=== PATIENT | male | born 1945 | race African-American/Black ===

== ENCOUNTER 2018-02-28 19:39 | Emergency (ER) | payer OTHER ==
[2018-02-28 20:10] VITALS: TEMP 96.7; BMI 20.3
--- NOTE | 2018-02-28 20:28 | PDOC ---
History of Present Illness - General Chief Complaint: Injury Stated Complaint: WEAKNESS Time Seen by Provider: 02/28/18 20:16 History Source: Patient Exam Limitations: No Limitations - History of Present Illness Initial Comments: CHIEF COMPLAINT: 72 y/o afebrile male with PMH asthma, COPD, HTN, Hep C sent over from [facility] for low back pain. HISTORY OF PRESENT ILLNESS: The patient had an unwitnessed fall yesterday and has been complaining of left sided low back pain since then. He admits he had surgery on his low back about 4 years ago and he's been relatively pain free but does take Tramadol every day. He denies bowel/bladder incontinence, lower extremity numbness/tingling, saddle anesthesia. he states he didn't fall. Vital signs on arrival are within normal limits. REVIEW OF SYSTEMS: GENERAL/CONSTITUTIONAL: No fever/chills. No weakness. No weight change. HEAD, EYES, EARS, NOSE AND THROAT: No change in vision. No ear pain or discharge. No sore throat. CARDIOVASCULAR: No chest pain or shortness of breath. RESPIRATORY: No cough, wheezing, or hemoptysis. GASTROINTESTINAL: No abd pain, nausea, vomiting, diarrhea, constipation. GENITOURINARY: No dysuria, frequency, or change in urination. MUSCULOSKELETAL: +left low back pain. No joint or muscle swelling or pain. No neck pain. SKIN: No rash or easy bruising. NEUROLOGIC: No headache, vertigo, loss of consciousness, or loss of sensation. PHYSICAL EXAM: GENERAL: The patient is awake, alert, and fully oriented, in no acute distress. He is well appearing. HEAD: Normal with no signs of trauma. ENT: Pupils equal, round and reactive to light, extraocular movements intact, sclera anicteric, conjunctiva clear. Neck supple. LUNGS: Clear to auscultation bilaterally. Normal excursion. No respiratory distress or use of accessory muscles. CV: RRR, S1/S2, no MRG. Cap refill < 2 sec. ABDOMEN: Soft, non-distended, non-tender even to deep palpation, no hepatomegaly or splenomegaly, no masses. BACK: Pain reproduced with palpation of left lumbar paravertebral muscles. No midline lumbar spine TTP or step offs. EXTREMITIES: Normal range of motion, 1+ pitting edema b/l LEs. NEUROLOGICAL: Normal speech, gait not assessed. CN II-XII grossly intact. No saddle anesthesia. SKIN: Warm, dry, normal turgor, no rashes or lesions noted. Past History - Past Medical History Allergies/Adverse Reactions: Allergies Allergy/AdvReac Type Severity Reaction Status Date / Time propofol Allergy Verified 02/28/18 20:10 Home Medications: Ambulatory Orders Fosinopril Sodium 40 mg PO DAILY 02/28/18 Tramadol HCl 50 mg PO Q6H PRN 02/28/18 Asthma: Yes COPD: Yes Thyroid Disease: Yes (HEP C) - Suicide/Smoking/Psychosocial Hx Smoking History: Never smoked *Physical Exam - Vital Signs Last Vital Signs Temp Pulse Resp BP Pulse Ox 96.7 F L 84 18 144/70 99 02/28/18 20:08 02/28/18 20:08 02/28/18 20:08 02/28/18 20:08 02/28/18 20:08 Medical Decision Making - Medical Decision Making A/P: 72 y/o male with left lumbar paravertebral tenderness. Patient denies fall but snf states he fell yesterday. Plan is as follows: 1. Xray lumbar spine 2. UA/culture 3. IM toradol Xray lumbar spine IMPRESSION: No acute bony pathology. UA negative Will discharge back to snf with supportive care instructions. The patient verbalizes understanding of all instructions, has no further questions and is awaiting discharge. *DC/Admit/Observation/Transfer Diagnosis at time of Disposition: Low back pain Qualifiers: Chronicity: acute Back pain laterality: left Sciatica presence: without sciatica Qualified Code(s): M54.5 - Low back pain - Discharge Dispostion Disposition: [facility] Condition at time of disposition: Good - Referrals Referrals: Jose Villarreal [Primary Care Provider] - - Patient Instructions Printed Discharge Instructions: DI for Low Back Pain, How to Prevent Falls Additional Instructions: Discharge Instructions: -the xray of your back was negative for any broken bones -You can take Motrin for pain if needed -Apply ice to the affected area; stretch affected area -Return to the ER with any worsening or concerning symptoms - Post Discharge Activity
[2018-02-28] MEDS ORDERED: KETOROLAC TROMETHAMINE 30 MG/1 ML VIAL IM ONE (20:29)
[2018-02-28] MEDS ORDERED: KETOROLAC TROMETHAMINE 30 MG/1 ML VIAL ONE (20:31)
--- NOTE | 2018-02-28 21:09 | PDOC ---
*Physical Exam - Vital Signs Last Vital Signs Temp Pulse Resp BP Pulse Ox 96.7 F L 84 18 144/70 99 02/28/18 20:08 02/28/18 20:08 02/28/18 20:08 02/28/18 20:08 02/28/18 20:08 ED Treatment Course - Medications Given in the ED: ED Medications Discontinued Medications Generic Name Dose Route Start Last Admin Trade Name Freq PRN Reason Stop Dose Admin Ketorolac Tromethamine 30 mg 02/28/18 20:29 02/28/18 20:34 Toradol Injection - IM 02/28/18 20:30 30 mg ONCE ONE Administration Medical Decision Making - Medical Decision Making 02/28/18 21:09 agree with care from SHASTA Reynolds *DC/Admit/Observation/Transfer Diagnosis at time of Disposition: Low back pain Qualifiers: Chronicity: acute Back pain laterality: left Sciatica presence: without sciatica Qualified Code(s): M54.5 - Low back pain - Discharge Dispostion Condition at time of disposition: Good - Referrals - Patient Instructions Printed Discharge Instructions: DI for Low Back Pain, How to Prevent Falls Additional Instructions: Discharge Instructions: - Post Discharge Activity
[2018-02-28 22:13] LABS: URINE APPEARANCE CLEAR; URINE BILIRUBIN NEGATIVE (<2.0 mg/dL); URINE BLOOD NEGATIVE (NEGATIVE); URINE COLOR LTYELLOW; URINE GLUCOSE (UA) NEGATIVE (NEGATIVE); URINE KETONE NEGATIVE (NEGATIVE); URINE LEUK ESTERASE NEGATIVE (NEGATIVE); URINE NITRITE NEGATIVE (NEGATIVE); URINE PROTEIN NEGATIVE (NEGATIVE); URINE UROBILINOGEN 4.0 E.U/dl mg/dL (0.2-1.0)
[2018-02-28 23:04] VITALS: BP 148/77; PULSE 70
== END 2018-02-28 23:47 ==
LOC: JER 19:39
DX: M54.5 Low back pain (principal); W18.39XA Other fall on same level, initial encounter; Y93.89 Activity, other specified; Y92.128 Other place in nursing home as the place of occurrence of the external cause; Y99.8 Other external cause status; I10 Essential (primary) hypertension; J44.9 Chronic obstructive pulmonary disease, unspecified; J45.909 Unspecified asthma, uncomplicated; B18.2 Chronic viral hepatitis C
CPT/HCPCS: 72100-TC-FY; 81003; 87086; 99283-25

== ENCOUNTER 2018-03-06 09:22 | Inpatient (IN) | payer OTHER ==
--- NOTE | 2018-03-06 09:43 | PDOC ---
History of Present Illness - General History Source: Patient Exam Limitations: No Limitations - History of Present Illness Initial Comments: 03/06/18 11:24 The patient is a 72 year old male resident from [facility], with a significant past medical history of Asthma, COPD, Hepatitis C, chronic lower back pain (on tramadol), ambulates at baseline with walker who presents to the emergency department s/p fall today. As per nursing staff, patient was walking to the bathroom when he fell to the floor. Patient complained of L hip pain and EMS was called. In the ED, patient is a poor historian and is presenting varying histories to nurse and physician. Upon evaluation, patient denies fall however reports worsening L hip pain for years, / in severity, radiating to L groin. Patient denies any head trauma, neck pain, LOC. According to nursing staff, patient has been having recurrent falls and was seen at [facility] ED for the same complaint 3 days ago. Pt is not well known to the [facility] staff as he is new there but they report he has been found on the side of his bed multiple times with unwitnessed falls. Patient denies chest pain, palpitations, diaphoresis, headache or dizziness. Patient denies fever, chills, abdominal pain, nausea, vomit, diarrhea or constipation. Patient denies dysuria, frequency, urgency or hematuria. Patient denies sick contacts or recent travel. Allergies: propofol Past surgical history: Lumbar spine sx Social history:denies etoh, smoking, recreational drug use PCP: None <Mirian Britton - Last Filed: 03/06/18 12:33> <Kevin Acuna - Last Filed: 03/06/18 14:05> - General Chief Complaint: Injury Stated Complaint: FALL Time Seen by Provider: 03/06/18 09:26 Past History <Mirian Britton - Last Filed: 03/06/18 12:33> - Past Medical History Asthma: Yes COPD: Yes Thyroid Disease: Yes (HEP C) - Suicide/Smoking/Psychosocial Hx Smoking History: Never smoked <Kevin Acuna - Last Filed: 03/06/18 14:05> - Past Medical History Allergies/Adverse Reactions: Allergies Allergy/AdvReac Type Severity Reaction Status Date / Time propofol Allergy Verified 02/28/18 20:10 Home Medications: Ambulatory Orders Fosinopril Sodium 40 mg PO DAILY 02/28/18 Tramadol HCl 50 mg PO Q6H PRN 02/28/18 Review of Systems - Review of Systems Able to Perform ROS?: Yes Comments:: 03/06/18 11:24 GENERAL/CONSTITUTIONAL: No fever or chills. No weakness. HEAD, EYES, EARS, NOSE AND THROAT: No change in vision. No ear pain or discharge. No sore throat. GASTROINTESTINAL: No nausea, vomiting, diarrhea or constipation. GENITOURINARY: No dysuria, frequency, or change in urination. CARDIOVASCULAR: No chest pain or shortness of breath. RESPIRATORY: No cough, wheezing, or hemoptysis. MUSCULOSKELETAL: No joint or muscle swelling or pain. + L hip pain. SKIN: No rash NEUROLOGIC: No headache, vertigo, loss of consciousness, or change in strength/ sensation. ENDOCRINE: No increased thirst. No abnormal weight change. HEMATOLOGIC/LYMPHATIC: No anemia, easy bleeding, or history of blood clots. ALLERGIC/IMMUNOLOGIC: No hives or skin allergy. <Mirian Britton - Last Filed: 03/06/18 12:33> *Physical Exam - Vital Signs Last Vital Signs Temp Pulse Resp BP Pulse Ox 98.2 F 85 156/98 99 03/06/18 09:22 03/06/18 09:22 03/06/18 09:22 03/06/18 09:22 - Physical Exam Comments: 03/06/18 11:24 GENERAL: Awake, alert, and fully oriented, in no acute distress HEAD: No signs of trauma EYES: PERRLA, EOMI, sclera anicteric, conjunctiva clear ENT: Auricles normal inspection, hearing grossly normal, nares patent, oropharynx clear without exudates. Moist mucosa NECK: Normal ROM, supple, no lymphadenopathy, JVD, or masses LUNGS: Breath sounds equal, clear to auscultation bilaterally. No wheezes, and no crackles HEART: Regular rate and rhythm, normal S1 and S2, no murmurs, rubs or gallops ABDOMEN: Soft, nontender, normoactive bowel sounds. No guarding, no rebound. No masses EXTREMITIES: Normal range of motion, no edema. No clubbing or cyanosis. No cords , erythema, or tenderness. +Erythema and TTP to the L elbow and proximal forearm. +L anterior superior iliac spine tenderness to palpation. NEUROLOGICAL: Normal speech, cranial nerves intact, negative pronator drift, 4+/ 5 strength in all 4 extremities, normal sensation to light touch in all 4 extremities, normal cerebellar exam, +L hand fine tremor at rest. +shuffling unsteady gait with 2 provider assistance SKIN: Warm, Dry, normal turgor, no rashes or lesions noted. <Mirian Britton - Last Filed: 03/06/18 12:33> Heart Score/ECG Review #1 03/06/18 10:25 Twelve-lead EKG was performed and reviewed by me. Normal sinus rhythm, rate 86. Wavy baseline due to patients baseline tremor, but normal axis.+ Right bundle branch block <Kevin Acuna - Last Filed: 03/06/18 14:05> ED Treatment Course - LABORATORY CBC & Chemistry Diagram: 03/06/18 10:10 03/06/18 10:10 - ADDITIONAL ORDERS Additional order review: Laboratory Results 03/06/18 03/06/18 03/06/18 10:10 10:10 10:10 PT with INR 11.00 INR 0.97 PTT (Actin FS) Sodium Potassium Chloride Carbon Dioxide Anion Gap BUN Creatinine Creat Clearance w eGFR Random Glucose Calcium Magnesium Total Bilirubin AST ALT Alkaline Phosphatase Troponin I < 0.02 Total Protein Albumin TSH 2.37 Urine Color Ltyellow Urine Appearance Clear Urine pH 6.0 Ur Specific [place] 1.011 Urine Protein Negative Urine Glucose (UA) Negative Urine Ketones Negative Urine Blood Negative Urine Nitrite Negative Urine Bilirubin Negative Urine Urobilinogen 4.0 e.u/dl Ur Leukocyte Esterase Negative Blood Type Antibody Screen 03/06/18 03/06/18 03/06/18 10:10 10:10 10:10 PT with INR INR PTT (Actin FS) 33.2 Sodium 140 Potassium 5.5 H Chloride 109 H Carbon Dioxide 27 Anion Gap 4 L BUN 45 H Creatinine 1.4 H Creat Clearance w eGFR 49.54 Random Glucose 149 H Calcium 8.8 Magnesium 2.4 Total Bilirubin 0.6 AST 76 H ALT 77 Alkaline Phosphatase 119 H Troponin I Total Protein 8.1 Albumin 3.8 TSH Urine Color Urine Appearance Urine pH Ur Specific [place] Urine Protein Urine Glucose (UA) Urine Ketones Urine Blood Urine Nitrite Urine Bilirubin Urine Urobilinogen Ur Leukocyte Esterase Blood Type A POSITIVE Antibody Screen Negative 03/06/18 10:10 RBC 4.49 MCV 90.4 MCHC 33.4 RDW 13.3 MPV 9.4 Neutrophils % 58.6 Lymphocytes % 21.3 Monocytes % 14.9 H Eosinophils % 4.5 Basophils % 0.7 - Medications Given in the ED: ED Medications Discontinued Medications Generic Name Dose Route Start Last Admin Trade Name Ofelia PRN Reason Stop Dose Admin Acetaminophen 1,000 mg 03/06/18 09:53 03/06/18 10:25 Ofirmev Injection - IVPB 03/06/18 09:54 1,000 mg ONCE ONE Administration <Mirian Britton - Last Filed: 03/06/18 12:33> - LABORATORY CBC & Chemistry Diagram: 03/06/18 10:10 03/06/18 10:10 <Kevin Acuna - Last Filed: 03/06/18 14:05> Medical Decision Making - Medical Decision Making 03/06/18 12:[address] Nguyen. Discussed patients case. Patient to be admitted under her service. <Mirian Britton - Last Filed: 03/06/18 12:33> - Medical Decision Making 03/06/18 09:54 72-year-old male with a history of hypertension, chronic back pain presents to the emergency Department from [facility] with multiple unwitnessed falls. Vitals unremarkable. Exam with tenderness to palpation along the left hip, L elbow and forearm. Also L sided fine resting tremor. Pt can not recall how he is falling or if he hit his head, states "I think I'm losing my balance." Pt also smells strongly of urine. Plan: -labs -xr -ct -monitor -UA/Ucx -like obs admit 03/06/18 14:03 Imaging unremarkable. Labs unremarkable. Given multiple falls, will admit pt for obs. Case discussed in detail with admitting physician Dr. Nguyen including history , physical exam and ancillary studies. Admitting physician has assumed care for the patient, will follow all pending diagnostics and will complete the evaluation and treatment. <Kevin Acuna - Last Filed: 03/06/18 14:05> *DC/Admit/Observation/Transfer - Attestations Scribe Attestion: 03/06/18 11:25 Documentation prepared by Mirian Britton, acting as medical assembler for Kevin Acuna MD <Mirian Britton - Last Filed: 03/06/18 12:33> - Discharge Dispostion Admit: Yes - Attestations Physician Attestion: 03/06/18 14:05 I, Dr. Kevin Acuna MD, attest that this document has been prepared under my direction and personally reviewed by me in its entirety. I further attest, that it accurately reflects all work, treatment, procedures and medical decision -making performed by me. <Kevin Acuna - Last Filed: 03/06/18 14:05> Diagnosis at time of Disposition: Falls frequently, Syncope and collapse - Discharge Dispostion Condition at time of disposition: Stable
[2018-03-06] MEDS ORDERED: ACETAMINOPHEN 1000 MG/100 ML VIAL (NON FORMULARY) IVPB ONE (09:53)
[2018-03-06 10:16] LABS: BASO % 0.7 % (0-2.0); EOS % 4.5 % (0-4.5); HEMATOCRIT 40.6 % (35.4-49); HEMOGLOBIN 13.6 GM/dL (11.7-16.9); LYMPH % 21.3 % (8-40); MCH 30.2 pg (25.7-33.7); MCHC 33.4 g/dl (32.0-35.9); MEAN CELL VOLUME 90.4 fl (80-96); MEAN PLT VOLUME 9.4 fl (7.5-11.1); MONO % 14.9 % (3.8-10.2); NEUT % 58.6 % (42.8-82.8); PLATELET COUNT 123 K/MM3 (134-434); RBC 4.49 M/mm3 (4.00-5.60); RDW 13.3 % (11.9-15.9); WHITE BLOOD COUNT 5.3 K/mm3 (4.0-10.0)
[2018-03-06 10:17] LABS: URINE APPEARANCE CLEAR; URINE BILIRUBIN NEGATIVE (<2.0 mg/dL); URINE COLOR LTYELLOW; URINE GLUCOSE (UA) NEGATIVE (NEGATIVE); URINE KETONE NEGATIVE (NEGATIVE); URINE LEUK ESTERASE NEGATIVE (NEGATIVE); URINE NITRITE NEGATIVE (NEGATIVE); URINE PROTEIN NEGATIVE (NEGATIVE); URINE UROBILINOGEN 4.0 E.U/dl mg/dL (0.2-1.0)
[2018-03-06] MEDS ORDERED: ACETAMINOPHEN INJECTION 100 ML IVPB ONE (10:19)
[2018-03-06 10:30] LABS: INR 0.97 (0.82-1.09)
[2018-03-06 10:49] LABS: ALBUMIN 3.8 g/dl (3.4-5.0); ALK PHOS 119 U/L (45-117); ANION GAP 4 (8-16); BILIRUBIN,TOTAL 0.6 mg/dL (0.2-1.0); BLOOD UREA NITROGEN 45 mg/dL (7-18); CALCIUM 8.8 mg/dL (8.5-10.1); CHLORIDE 109 mmol/L (98-107); CO2 27 mmol/L (21-32); CREATININE 1.4 mg/dL (0.7-1.3); GLUCOSE,RANDOM 149 mg/dL (74-106); MAGNESIUM 2.4 mg/dL (1.8-2.4); POTASSIUM 5.5 mmol/L (3.5-5.1); SGOT/AST 76 U/L (15-37); SGPT/ALT 77 U/L (12-78); SODIUM 140 mmol/L (136-145); TOT PROT 8.1 g/dl (6.4-8.2)
[2018-03-06] MEDS ORDERED: SODIUM CHLORIDE 0.9% 500 ML INFUS.BAG IV ONE (11:28)
[2018-03-06 17:43] VITALS: BMI 20.3
--- NOTE | 2018-03-06 19:27 | HP ---
Admitting History and Physical - Primary Care Physician PCP: Slava Nguyen - Admission Chief Complaint: fall History of Present Illness: 72 year old male resident from [facility], with a significant past medical history of Asthma, COPD, Hepatitis C, chronic lower back pain (on tramadol), ambulates at baseline with walker who presents to the emergency department s/p fall today. As per nursing staff, patient was walking to the bathroom when he fell to the floor. Patient complained of L hip pain and EMS was called. In the ED, patient is a poor historian and is presenting varying histories to nurse and physician. Upon evaluation, patient denies fall however reports worsening L hip pain for years, / in severity, radiating to L groin. Patient denies any head trauma, neck pain, LOC. According to nursing staff, patient has been having recurrent falls and was seen at [facility] ED for the same complaint 3 days ago. Pt is not well known to the [facility] staff as he is new there but they report he has been found on the side of his bed multiple times with unwitnessed falls. - Past Medical History Cardiovascular: Yes: HTN Pulmonary: Yes: Asthma, COPD - Smoking History Smoking history: Never smoked Have you smoked in the past 12 months: No Home Medications - Allergies Allergies/Adverse Reactions: Allergies Allergy/AdvReac Type Severity Reaction Status Date / Time propofol Allergy Verified 02/28/18 20:10 - Home Medications Home Medications: Ambulatory Orders Ammonium Lactate 1 ml MC BID 03/06/18 Calcium Carbonate [Calcium Antacid] 300 mg PO DAILY 03/06/18 Cyclobenzaprine HCl [Flexeril -] 5 mg PO BID 03/06/18 Ferrous Sulfate 325 mg PO DAILY 03/06/18 Fluticasone Prop 0.05% Nasal [Flonase -] 1 - 2 spray NS BID 03/06/18 Fluticasone/Salmeterol [Advair 250-50 Diskus] 1 each IH BID 03/06/18 Fosinopril Sodium 40 mg PO DAILY 03/06/18 Triamterene/Hydrochlorothiazid [Triamterene-Hctz 37.5-25 mg Cp] 1 each PO DAILY 03/06/18 Physical Examination Vital Signs: Vital Signs Temperature 97.6 F 03/06/18 18:51 Pulse Rate 95 H 03/06/18 18:51 Respiratory Rate 18 03/06/18 18:51 Blood Pressure 145/93 03/06/18 18:51 O2 Sat by Pulse Oximetry (%) 99 03/06/18 17:12 Constitutional: Yes: No Distress HENT: Yes: Atraumatic Neck: Yes: Supple Cardiovascular: Yes: Regular Rate and Rhythm Respiratory: Yes: CTA Bilaterally Gastrointestinal: Yes: Normal Bowel Sounds Extremities: Yes: WNL Edema: No Peripheral Pulses WNL: Yes Neurological: Yes: Alert, Oriented Labs: CBC, BMP 03/06/18 10:10 03/06/18 10:10 Problem List - Problems (1) Falls frequently Assessment/Plan: pt eval pt uses walker at home Code(s): R29.6 - REPEATED FALLS (2) Syncope and collapse Code(s): R55 - SYNCOPE AND COLLAPSE (3) Low back pain Assessment/Plan: prn pain meds Code(s): M54.5 - LOW BACK PAIN Assessment/Plan Laboratory Tests 03/06/18 03/06/18 03/06/18 10:10 10:10 10:10 WBC 5.3 RBC 4.49 Hgb 13.6 Hct 40.6 MCV 90.4 MCH 30.2 MCHC 33.4 RDW 13.3 Plt Count 123 L MPV 9.4 Neutrophils % 58.6 Lymphocytes % 21.3 Monocytes % 14.9 H Eosinophils % 4.5 Basophils % 0.7 PT with INR INR PTT (Actin FS) 33.2 Sodium 140 Potassium 5.5 H Chloride 109 H Carbon Dioxide 27 Anion Gap 4 L BUN 45 H Creatinine 1.4 H Creat Clearance w eGFR 49.54 Random Glucose 149 H Calcium 8.8 Magnesium 2.4 Total Bilirubin 0.6 AST 76 H ALT 77 Alkaline Phosphatase 119 H Troponin I Total Protein 8.1 Albumin 3.8 TSH Urine Color Urine Appearance Urine pH Ur Specific [place] Urine Protein Urine Glucose (UA) Urine Ketones Urine Blood Urine Nitrite Urine Bilirubin Urine Urobilinogen Ur Leukocyte Esterase Blood Type Antibody Screen 03/06/18 03/06/18 03/06/18 10:10 10:10 10:10 WBC RBC Hgb Hct MCV MCH MCHC RDW Plt Count MPV Neutrophils % Lymphocytes % Monocytes % Eosinophils % Basophils % PT with INR 11.00 INR 0.97 PTT (Actin FS) Sodium Potassium Chloride Carbon Dioxide Anion Gap BUN Creatinine Creat Clearance w eGFR Random Glucose Calcium Magnesium Total Bilirubin AST ALT Alkaline Phosphatase Troponin I Total Protein Albumin TSH Urine Color Ltyellow Urine Appearance Clear Urine pH 6.0 Ur Specific [place] 1.011 Urine Protein Negative Urine Glucose (UA) Negative Urine Ketones Negative Urine Blood Negative Urine Nitrite Negative Urine Bilirubin Negative Urine Urobilinogen 4.0 e.u/dl Ur Leukocyte Esterase Negative Blood Type A POSITIVE Antibody Screen Negative 03/06/18 03/06/18 10:10 11:19 WBC RBC Hgb Hct MCV MCH MCHC RDW Plt Count MPV Neutrophils % Lymphocytes % Monocytes % Eosinophils % Basophils % PT with INR INR PTT (Actin FS) Sodium Potassium Chloride Carbon Dioxide Anion Gap BUN Creatinine Creat Clearance w eGFR Random Glucose Calcium Magnesium Total Bilirubin AST ALT Alkaline Phosphatase Troponin I < 0.02 Total Protein Albumin TSH 2.37 Urine Color Urine Appearance Urine pH Ur Specific [place] Urine Protein Urine Glucose (UA) Urine Ketones Urine Blood Urine Nitrite Urine Bilirubin Urine Urobilinogen Ur Leukocyte Esterase Blood Type A POSITIVE Antibody Screen Active Medications Generic Name Dose Route Start Last Admin Trade Name Freq PRN Reason Stop Dose Admin Ferrous Sulfate 325 mg 03/07/18 10:00 Feosol - PO DAILY MARLYS Triamterene/HCTZ 1 cap 03/07/18 10:00 Dyazide 25/37.5mg PO DAILY MARLYS
--- NOTE | 2018-03-06 22:01 | EKG ---
Test Reason : Blood Pressure : / mmHG Vent. Rate : 086 BPM Atrial Rate : 086 BPM P-R Int : 196 ms QRS Dur : 128 ms QT Int : 390 ms P-R-T Axes : 070 066 046 degrees QTc Int : 466 ms NORMAL SINUS RHYTHM RIGHT BUNDLE BRANCH BLOCK BASELINE ARTIFACT ABNORMAL ECG NO PREVIOUS ECGS AVAILABLE Confirmed by OMAR KOEHLER, ALFONSO ([id number]) on 03/06/2018 10:01:05 PM Referred By: Confirmed By:ALFONSO NELSON MD
[2018-03-07 07:46] LABS: ALBUMIN 3.2 g/dl (3.4-5.0); ALK PHOS 98 U/L (45-117); ANION GAP 6 (8-16); BILIRUBIN,TOTAL 0.6 mg/dL (0.2-1.0); BLOOD UREA NITROGEN 30 mg/dL (7-18); CALCIUM 8.8 mg/dL (8.5-10.1); CHLORIDE 109 mmol/L (98-107); CO2 24 mmol/L (21-32); CREATININE 0.8 mg/dL (0.7-1.3); GLUCOSE,RANDOM 145 mg/dL (74-106); POTASSIUM 5.5 mmol/L (3.5-5.1); SGOT/AST 67 U/L (15-37); SGPT/ALT 61 U/L (12-78); SODIUM 139 mmol/L (136-145); TOT PROT 6.9 g/dl (6.4-8.2)
[2018-03-07 07:51] LABS: BASO % 0.7 % (0-2.0); EOS % 5.2 % (0-4.5); HEMATOCRIT 35.6 % (35.4-49); HEMOGLOBIN 11.8 GM/dL (11.7-16.9); LYMPH % 22.8 % (8-40); MCH 30.1 pg (25.7-33.7); MCHC 33.3 g/dl (32.0-35.9); MEAN CELL VOLUME 90.4 fl (80-96); MEAN PLT VOLUME 9.8 fl (7.5-11.1); MONO % 13.8 % (3.8-10.2); NEUT % 57.5 % (42.8-82.8); PLATELET COUNT 121 K/MM3 (134-434); RBC 3.93 M/mm3 (4.00-5.60); RDW 13.8 % (11.9-15.9); WHITE BLOOD COUNT 5.3 K/mm3 (4.0-10.0)
[2018-03-07] MEDS ORDERED: PT OWN MED DRAWER 7, Y5N ONE (09:27)
[2018-03-07] MEDS: FERROUS SO4 325 MG TABLET (FP) PO SCH (09:37)
[2018-03-07] MEDS: TRIAMTERENE AND HCTZ - 37.5 MG/25 MG CAPSULE PO SCH (09:37)
[2018-03-07] MEDS ORDERED: TRIAMTERENE AND HCTZ - 37.5 MG/25 MG CAPSULE PO SCH (10:00)
--- NOTE | 2018-03-07 10:07 | CON.CARD ---
Consult Consult Specialty:: Cardiology Referred by:: Dr. Nguyen Reason for Consultation:: Cardiac evaluation - History of Present Illness Chief Complaint: Status post fall History of Present Illness: Patient is a 72 year old male who resides at [facility] with underlying history of hypertension, bronchial asthma, previous substance abuse, low back pain post surgery and currently ambulates with walker presented to ED after a fall at his residence ([facility]). He denies loss of consciousness. He denies chest pain, shortness of breath or palpitations. He denies paroxysmal nocturnal dyspnea or orthopnea. He denies fever or chills. He denies nausea, vomiting, diarrhea or abdominal pain. He denies headache or lightheadedness. He complains of left sided weakness, but it appears to be presents for some time. Cardiology consultation was called for further evaluation. - History Source History Provided By: Patient, Medical Record Limitations to Obtaining History: No Limitations - Past Medical History Cardio/Vascular: Yes: HTN Pulmonary: Yes: Asthma, COPD - Past Surgical History Additional Surgical History: Back surgery (probable spine surgery) - Alcohol/Substance Use Hx Alcohol Use: Yes History of Substance Use: reports: Cocaine, Heroin, Marijuana - Smoking History Smoking history: Former smoker Have you smoked in the past 12 months: No Home Medications - Allergies Allergies/Adverse Reactions: Allergies Allergy/AdvReac Type Severity Reaction Status Date / Time propofol Allergy Verified 02/28/18 20:10 - Home Medications Home Medications: Ambulatory Orders Ammonium Lactate 1 ml MC BID 03/06/18 Calcium Carbonate [Calcium Antacid] 300 mg PO DAILY 03/06/18 Cyclobenzaprine HCl [Flexeril -] 5 mg PO BID 03/06/18 Ferrous Sulfate 325 mg PO DAILY 03/06/18 Fluticasone Prop 0.05% Nasal [Flonase -] 1 - 2 spray NS BID 03/06/18 Fluticasone/Salmeterol [Advair 250-50 Diskus] 1 each IH BID 03/06/18 Fosinopril Sodium 40 mg PO DAILY 03/06/18 Triamterene/Hydrochlorothiazid [Triamterene-Hctz 37.5-25 mg Cp] 1 each PO DAILY 03/06/18 Family Disease History - Family Disease History Family History: Denies Review of Systems - Review of Systems Constitutional: reports: Weakness. denies: Chills, Fever Cardiovascular: denies: Chest Pain, Palpitations, Shortness of Breath Respiratory: denies: Cough, Hemoptysis, Orthopnea, PND, SOB, SOB on Exertion Gastrointestinal: denies: Abdominal Pain, Constipation, Diarrhea, Melena, Nausea , Rectal Bleeding, Vomiting Musculoskeletal: reports: Muscle Weakness Neurological: reports: Unsteady Gait, Weakness. denies: Confusion, Dizziness, Headache, Numbness, Seizure, Syncope Vital Signs: Vital Signs Temperature 98.1 F 03/07/18 09:00 Pulse Rate 95 H 03/07/18 09:00 Respiratory Rate 03/07/18 09:00 Blood Pressure 166/87 03/07/18 09:00 O2 Sat by Pulse Oximetry (%) 99 03/06/18 17:12 Eyes: Yes: PERRL HENT: Yes: Atraumatic Neck: Yes: Supple Respiratory: Yes: CTA Bilaterally Gastrointestinal: Yes: Normal Bowel Sounds, Soft. No: Tenderness Cardiovascular: Yes: Regular Rate and Rhythm JVD: No Carotid Bruit: No PMI: Non-Displaced Heart Sounds: Yes: S1, S2 Murmur: Yes: Systolic Murmur, Grade 1 Edema: No - Other Data Labs, Other Data: CBC, BMP 03/07/18 06:00 03/07/18 06:00 INR, PTT INR 0.97 (0.82-1.09) 03/06/18 10:10 Troponin, BNP 03/06/18 03/06/18 10:10 20:00 Troponin I < 0.02 0.02 Laboratory Results - last 24 hr 03/06/18 03/06/18 03/06/18 10:10 10:10 10:10 WBC 5.3 RBC 4.49 Hgb 13.6 Hct 40.6 MCV 90.4 MCH 30.2 MCHC 33.4 RDW 13.3 Plt Count 123 L MPV 9.4 Neutrophils % 58.6 Lymphocytes % 21.3 Monocytes % 14.9 H Eosinophils % 4.5 Basophils % 0.7 PT with INR INR PTT (Actin FS) 33.2 Sodium 140 Potassium 5.5 H Chloride 109 H Carbon Dioxide 27 Anion Gap 4 L BUN 45 H Creatinine 1.4 H Creat Clearance w eGFR 49.54 Random Glucose 149 H Calcium 8.8 Magnesium 2.4 Total Bilirubin 0.6 AST 76 H ALT 77 Alkaline Phosphatase 119 H Creatine Kinase Creatine Kinase Index CK-MB (CK-2) Troponin I Total Protein 8.1 Albumin 3.8 TSH Urine Color Urine Appearance Urine pH Ur Specific Dix Urine Protein Urine Glucose (UA) Urine Ketones Urine Blood Urine Nitrite Urine Bilirubin Urine Urobilinogen Ur Leukocyte Esterase Blood Type Antibody Screen 03/06/18 03/06/18 03/06/18 10:10 10:10 10:10 WBC RBC Hgb Hct MCV MCH MCHC RDW Plt Count MPV Neutrophils % Lymphocytes % Monocytes % Eosinophils % Basophils % PT with INR 11.00 INR 0.97 PTT (Actin FS) Sodium Potassium Chloride Carbon Dioxide Anion Gap BUN Creatinine Creat Clearance w eGFR Random Glucose Calcium Magnesium Total Bilirubin AST ALT Alkaline Phosphatase Creatine Kinase Creatine Kinase Index CK-MB (CK-2) Troponin I Total Protein Albumin TSH Urine Color Ltyellow Urine Appearance Clear Urine pH 6.0 Ur Specific Dix 1.011 Urine Protein Negative Urine Glucose (UA) Negative Urine Ketones Negative Urine Blood Negative Urine Nitrite Negative Urine Bilirubin Negative Urine Urobilinogen 4.0 e.u/dl Ur Leukocyte Esterase Negative Blood Type A POSITIVE Antibody Screen Negative 03/06/18 03/06/18 03/06/18 10:10 11:19 20:00 WBC RBC Hgb Hct MCV MCH MCHC RDW Plt Count MPV Neutrophils % Lymphocytes % Monocytes % Eosinophils % Basophils % PT with INR INR PTT (Actin FS) Sodium Potassium Chloride Carbon Dioxide Anion Gap BUN Creatinine Creat Clearance w eGFR Random Glucose Calcium Magnesium Total Bilirubin AST ALT Alkaline Phosphatase Creatine Kinase 462 H Creatine Kinase Index 0.9 CK-MB (CK-2) 4.399 H Troponin I < 0.02 0.02 Total Protein Albumin TSH 2.37 Urine Color Urine Appearance Urine pH Ur Specific Dix Urine Protein Urine Glucose (UA) Urine Ketones Urine Blood Urine Nitrite Urine Bilirubin Urine Urobilinogen Ur Leukocyte Esterase Blood Type A POSITIVE Antibody Screen 03/07/18 03/07/18 06:00 06:00 WBC 5.3 RBC 3.93 L Hgb 11.8 D Hct 35.6 MCV 90.4 MCH 30.1 MCHC 33.3 RDW 13.8 Plt Count 121 L MPV 9.8 Neutrophils % 57.5 Lymphocytes % 22.8 Monocytes % 13.8 H Eosinophils % 5.2 H Basophils % 0.7 PT with INR INR PTT (Actin FS) Sodium 139 Potassium 5.5 H Chloride 109 H Carbon Dioxide 24 Anion Gap 6 L BUN 30 H D Creatinine 0.8 D Creat Clearance w eGFR > 60 Random Glucose 145 H Calcium 8.8 Magnesium Total Bilirubin 0.6 AST 67 H ALT 61 D Alkaline Phosphatase 98 Creatine Kinase Creatine Kinase Index CK-MB (CK-2) Troponin I Total Protein 6.9 Albumin 3.2 L TSH Urine Color Urine Appearance Urine pH Ur Specific Dix Urine Protein Urine Glucose (UA) Urine Ketones Urine Blood Urine Nitrite Urine Bilirubin Urine Urobilinogen Ur Leukocyte Esterase Blood Type Antibody Screen Normal sinus rhythm with RBBB (incomplete) Echo: Pending Imaging - Results Chest X-ray: Report Reviewed (Unremarkable) X-ray: Report Reviewed (Left radial nondisplaced fracture) Cat Scan: Report Reviewed (Cervical disc disease, degenerative joint Head CT showed atrophy) EKG: Report Reviewed Problem List - Problems (1) Fall Code(s): W19.XXXA - UNSPECIFIED FALL, INITIAL ENCOUNTER Qualifiers: Encounter type: initial encounter Qualified Code(s): W19.XXXA - Unspecified fall, initial encounter (2) Nondisplaced fracture of left radius Code(s): S52.92XA - UNSP FRACTURE OF LEFT FOREARM, INIT FOR CLOS FX Qualifiers: Encounter type: initial encounter (3) Bronchial asthma Code(s): J45.909 - UNSPECIFIED ASTHMA, UNCOMPLICATED Qualifiers: Asthma severity: mild Asthma persistence: unspecified Asthma complication type: uncomplicated Qualified Code(s): J45.909 - Unspecified asthma, uncomplicated (4) HTN (hypertension) Code(s): I10 - ESSENTIAL (PRIMARY) HYPERTENSION Qualifiers: Hypertension type: essential hypertension Qualified Code(s): I10 - Essential (primary) hypertension (5) Hyperkalemia Code(s): E87.5 - HYPERKALEMIA Assessment/Plan 1. Status post mechanical fall without evidence of syncope resulting in left radial nondisplaced fracture 2. Hypertension - not at goal 3. History of substance abuse 4. Bronchial asthma 5. Degenerative joint disease/low back pain with disc disease/cervical disc disease 6. Hyperkalemia 7. Elevated AST PLAN: 1. Transthoracic echocardiography to assess LV/RV and valvular function 2. Continue current anti-hypertensive with dyazide 3. Ideally ACEI or ARB can be considered if K level normalizes 4. Add Amlodipine 5 mg once a day and up-titrate 5. Consider orthopedic evaluation for left arm support 6. Monitor electrolytes 7. Follow LFTs. Check fasting lipid panel Further plans are to follow Cem Sanchez MD
[2018-03-07] MEDS: amLODIPine BESYLATE 5 MG TABLET (FP) PO SCH (11:48)
--- NOTE | 2018-03-07 19:05 | PN ---
Progress Note, Physician - Current Medication List Current Medications: Active Medications Amlodipine Besylate (Norvasc -) 5 mg PO DAILY [facility] Last Admin: 03/07/18 11:48 Dose: 5 mg Ferrous Sulfate (Feosol -) 325 mg PO DAILY [facility] Last Admin: 03/07/18 09:37 Dose: 325 mg Triamterene/HCTZ (Dyazide 25/37.5mg) 1 cap PO DAILY [facility] Last Admin: 03/07/18 09:37 Dose: 1 cap - Objective Vital Signs: Vital Signs Temperature 97.8 F 03/07/18 14:27 Pulse Rate 98 H 03/07/18 14:27 Respiratory Rate 16 03/07/18 14:27 Blood Pressure 150/78 03/07/18 14:27 O2 Sat by Pulse Oximetry (%) 95 03/07/18 14:00 Constitutional: Yes: No Distress HENT: Yes: Atraumatic Neck: Yes: Supple Cardiovascular: Yes: Regular Rate and Rhythm Respiratory: Yes: CTA Bilaterally Gastrointestinal: Yes: Normal Bowel Sounds Extremities: Yes: WNL Edema: No Peripheral Pulses WNL: Yes Neurological: Yes: Alert, Oriented Labs: CBC, BMP 03/07/18 06:00 03/07/18 06:00 INR, PTT INR 0.97 (0.82-1.09) 03/06/18 10:10 Problem List - Problems (1) Falls frequently Assessment/Plan: pt eval pt uses walker at home neuro consult ...gait problem Code(s): R29.6 - REPEATED FALLS (2) Syncope and collapse Assessment/Plan: cardiac enzymes negative cardiology consult reviewed Code(s): R55 - SYNCOPE AND COLLAPSE (3) Low back pain Assessment/Plan: prn pain meds Code(s): M54.5 - LOW BACK PAIN (4) HTN (hypertension) Assessment/Plan: on meds Code(s): I10 - ESSENTIAL (PRIMARY) HYPERTENSION Qualifiers: Hypertension type: essential hypertension Qualified Code(s): I10 - Essential (primary) hypertension (5) Hyperkalemia Assessment/Plan: will give K exalate Code(s): E87.5 - HYPERKALEMIA
[2018-03-07] MEDS ORDERED: SODIUM POLYSTYRENE SULFONATE 15 GM/60 ML BOTTLE PO ONE (19:15)
--- NOTE | 2018-03-07 20:43 | CON.NEURO ---
Consult Consult Specialty:: NEUROLOGY-MIGUELINA KOEHLER - History of Present Illness History of Present Illness: 72 year old male resident from [facility] [place], with a significant past medical history of Asthma, COPD, Hepatitis C, chronic lower back pain (on tramadol), ambulates at baseline with walker who presents to the emergency department s/p fall today. As per nursing staff, patient was walking to the bathroom when he fell to the floor. Patient complained of L hip pain and EMS was called. In the ED, patient is a poor historian and is presenting varying histories to nurse and physician. Upon evaluation, patient denies fall however reports worsening L hip pain for years, 10/ in severity, radiating to L groin. Patient denies any head trauma, neck pain, LOC. According to nursing staff, patient has been having recurrent falls and was seen at [facility] ED for the same complaint 3 days ago. Pt is not well known to the [facility] staff as he is new there but they report he has been found on the side of his bed multiple times with unwitnessed falls. -Pt. tells me he began having left leg weakness 3 years ago -this was followed by lumbar spine surgery but leg weakness did not improve, he clive been ambulating with a walker since with a foot drop and entire left leg weakness. He does not know when right leg became weak. Denies loosing consciousness during falls. - Past Medical History Cardio/Vascular: Yes: HTN Pulmonary: Yes: Asthma, COPD - Past Surgical History Additional Surgical History: Back surgery (probable spine surgery) - Alcohol/Substance Use Hx Alcohol Use: Yes History of Substance Use: reports: Cocaine, Heroin, Marijuana - Smoking History Smoking history: Never smoked Have you smoked in the past 12 months: No Home Medications - Allergies Allergies/Adverse Reactions: Allergies Allergy/AdvReac Type Severity Reaction Status Date / Time propofol Allergy Verified 02/28/18 20:10 - Home Medications Home Medications: Ambulatory Orders Ammonium Lactate 1 ml MC BID 03/06/18 Calcium Carbonate [Calcium Antacid] 300 mg PO DAILY 03/06/18 Cyclobenzaprine HCl [Flexeril -] 5 mg PO BID 03/06/18 Ferrous Sulfate 325 mg PO DAILY 03/06/18 Fluticasone Prop 0.05% Nasal [Flonase -] 1 - 2 spray NS BID 03/06/18 Fluticasone/Salmeterol [Advair 250-50 Diskus] 1 each IH BID 03/06/18 Fosinopril Sodium 40 mg PO DAILY 03/06/18 Triamterene/Hydrochlorothiazid [Triamterene-Hctz 37.5-25 mg Cp] 1 each PO DAILY 03/06/18 Physical Exam-Neuro Vital Signs: Vital Signs Temperature 97.8 F 03/07/18 14:27 Pulse Rate 98 H 03/07/18 14:27 Respiratory Rate 16 03/07/18 14:27 Blood Pressure 150/78 03/07/18 14:27 O2 Sat by Pulse Oximetry (%) 98 03/07/18 20:17 Labs: CBC, BMP 03/07/18 06:00 03/07/18 06:00 INR, PTT INR 0.97 (0.82-1.09) 03/06/18 10:10 - Neuro Exam Level Of Consciousness: Yes: Alert, Oriented to Person, Oriented to Place Dominant Hand: Right Mini Mental Exam: Intact HIF DTR's: 0 Left Achilles, 0 Right Achilles (Bilat knee reflexes absent), 1+ Left Bicep, 1+ Right Bicep, 1+ Left Tricep, 1+ Right Tricep, 1+ Left Brachioradialis , 1+ Right Brachioradialis Motor Strength: 2/5: Left Leg, 3/5: Left Leg, 5/5: Left Arm, Right Arm Gait: Other (Unable to stand) Imaging - Results Cat Scan: Report Reviewed (Head-moderate atrophy, chronic sinusitis), Other (DJD , fusion C3/C4 on CT Cspine) Assessment/Plan Pt. with multiple falls, he has had weakness, lower motor neuron x 3 years and hip pain secondary to joint dz. He has been falling because of mechnical reasons. Suggest: MRI l/s spine(unless he has metal inhis back, he says he doesnt) Vitamin B12 level Tramadol for pain Will follow, thank you Patria Ji MD
[2018-03-08 07:20] LABS: ALBUMIN 3.2 g/dl (3.4-5.0); ALK PHOS 105 U/L (45-117); ANION GAP 9 (8-16); BILIRUBIN,TOTAL 0.9 mg/dL (0.2-1.0); BLOOD UREA NITROGEN 22 mg/dL (7-18); CALCIUM 8.8 mg/dL (8.5-10.1); CHLORIDE 107 mmol/L (98-107); CO2 22 mmol/L (21-32); GLUCOSE,RANDOM 166 mg/dL (74-106); POTASSIUM 5.1 mmol/L (3.5-5.1); SGOT/AST 76 U/L (15-37); SGPT/ALT 68 U/L (12-78); SODIUM 138 mmol/L (136-145); TOT PROT 7.4 g/dl (6.4-8.2)
--- NOTE | 2018-03-08 08:35 | PN ---
Progress Note (short form) - Note Progress Note: 72 year old male resident from [facility], with a significant past medical history of Asthma, COPD, Hepatitis C, chronic lower back pain (on tramadol), ambulates at baseline with walker who presents to the emergency department s/p fall today. As per nursing staff, patient was walking to the bathroom when he fell to the floor. Patient complained of L hip pain and EMS was called. In the ED, patient is a poor historian and is presenting varying histories to nurse and physician. Upon evaluation, patient denies fall however reports worsening L hip pain for years, / in severity, radiating to L groin. Patient denies any head trauma, neck pain, LOC. According to nursing staff, patient has been having recurrent falls and was seen at [facility] ED for the same complaint 3 days ago. Pt is not well known to the [facility] staff as he is new there but they report he has been found on the side of his bed multiple times with unwitnessed falls. -Pt. tells me he began having left leg weakness 3 years ago -this was followed by lumbar spine surgery but leg weakness did not improve, he clive been ambulating with a walker since with a foot drop and entire left leg weakness. He does not know when right leg became weak. Denies loosing consciousness during falls. FU HX OF LS spine surgery years ago (?[facility])known HX of left sided foot drop, though over last few days unable ot ambulate, usually able to use walker, +neck and low back pain , ? sesnory changes-poor HX - Past Medical History Cardio/Vascular: Yes: HTN Pulmonary: Yes: Asthma, COPD - Past Surgical History Additional Surgical History: Back surgery (probable spine surgery) - Alcohol/Substance Use Hx Alcohol Use: Yes History of Substance Use: reports: Cocaine, Heroin, Marijuana - Smoking History Smoking history: Never smoked Have you smoked in the past 12 months: No Home Medications - Allergies Allergies/Adverse Reactions: Allergies Allergy/AdvReac Type Severity Reaction Status Date / Time propofol Allergy Verified 02/28/18 20:10 - Home Medications Home Medications: Ambulatory Orders Ammonium Lactate 1 ml MC BID 03/06/18 Calcium Carbonate [Calcium Antacid] 300 mg PO DAILY 03/06/18 Cyclobenzaprine HCl [Flexeril -] 5 mg PO BID 03/06/18 Ferrous Sulfate 325 mg PO DAILY 03/06/18 Fluticasone Prop 0.05% Nasal [Flonase -] 1 - 2 spray NS BID 03/06/18 Fluticasone/Salmeterol [Advair 250-50 Diskus] 1 each IH BID 03/06/18 Fosinopril Sodium 40 mg PO DAILY 03/06/18 Triamterene/Hydrochlorothiazid [Triamterene-Hctz 37.5-25 mg Cp] 1 each PO DAILY 03/06/18 Physical Exam-Neuro: LUE weakness TR 4/5 and interoseei BL IP 3/5 BL, hams 4/5, TA L 3/5 and R 4/5 Vital Signs: Vital Signs Temperature 97.6 F 03/08/18 06:00 Pulse Rate 94 H 03/08/18 06:00 Respiratory Rate 20 03/08/18 06:00 Blood Pressure 140/82 03/08/18 06:00 O2 Sat by Pulse Oximetry (%) 98 03/07/18 20:17 Labs: CBCD WBC 5.3 K/mm3 (4.0-10.0) 03/07/18 06:00 RBC 3.93 M/mm3 (4.00-5.60) L 03/07/18 06:00 Hgb 11.8 GM/dL (11.7-16.9) D 03/07/18 06:00 Hct 35.6 % (35.4-49) 03/07/18 06:00 MCV 90.4 fl (80-96) 03/07/18 06:00 MCHC 33.3 g/dl (32.0-35.9) 03/07/18 06:00 RDW 13.8 % (11.9-15.9) 03/07/18 06:00 Plt Count 121 K/MM3 (134-434) L 03/07/18 06:00 MPV 9.8 fl (7.5-11.1) 03/07/18 06:00 CMP Sodium 139 mmol/L (136-145) 03/07/18 06:00 Potassium 5.5 mmol/L (3.5-5.1) H 03/07/18 06:00 Chloride 109 mmol/L (98-107) H 03/07/18 06:00 Carbon Dioxide 24 mmol/L (21-32) 03/07/18 06:00 Anion Gap 6 (8-16) L 03/07/18 06:00 BUN 30 mg/dL (7-18) H D 03/07/18 06:00 Creatinine 0.8 mg/dL (0.7-1.3) D 03/07/18 06:00 Creat Clearance w eGFR > 60 (>60) 03/07/18 06:00 Calcium 8.8 mg/dL (8.5-10.1) 03/07/18 06:00 Total Bilirubin 0.6 mg/dL (0.2-1.0) 03/07/18 06:00 AST 67 U/L (15-37) H 03/07/18 06:00 ALT 61 U/L (12-78) D 03/07/18 06:00 Alkaline Phosphatase 98 U/L (45-117) 03/07/18 06:00 Total Protein 6.9 g/dl (6.4-8.2) 03/07/18 06:00 Albumin 3.2 g/dl (3.4-5.0) L 03/07/18 06:00 - Neuro Exam Level Of Consciousness: Yes: Alert, Oriented to Person, Oriented to Place Dominant Hand: Right Mini Mental Exam: Intact HIF DTR's: 0 Left Achilles, 0 Right Achilles (Bilat knee reflexes absent), 1+ Left Bicep, 1+ Right Bicep, 1+ Left Tricep, 1+ Right Tricep, 1+ Left Brachioradialis , 1+ Right Brachioradialis Motor Strength: 2/5: Left Leg, 3/5: Left Leg, 5/5: Left Arm, Right Arm Gait: Other (Unable to stand) Imaging - Results Cat Scan: Report Reviewed (Head-moderate atrophy, chronic sinusitis), Other (DJD , fusion C3/C4 on CT Cspine) Assessment/Plan Pt. with multiple falls, prior LS spine surgery and foot drop with progressive gait impairment, now almost paeraplegic L >R r/o worseing LS spine disease though weakness and wasting in the Left UE suggests cervical myelopathy, perhaps at C6-C7 NEEDS MRI C/T and LSPINE EMG LE/REHAB CONSULT NEUROSURGICAL CONSULT Dr FLOR
[2018-03-08 09:56] LABS: CHOLESTEROL 120 mg/dL (50-200); HDL CHOLESTEROL 50 mg/dL (40-60); TRIGLYCERIDES 127 mg/dL (35-160)
[2018-03-08] MEDS: TRIAMTERENE AND HCTZ - 37.5 MG/25 MG CAPSULE PO SCH (10:07)
[2018-03-08] MEDS: FERROUS SO4 325 MG TABLET (FP) PO SCH (10:08)
[2018-03-08] MEDS: amLODIPine BESYLATE 5 MG TABLET (FP) PO SCH (10:08)
--- NOTE | 2018-03-08 11:23 | PN ---
Progress Note, Physician History of Present Illness: Denies near or true syncope, no chest pain or dyspnea. - Current Medication List Current Medications: Active Medications Amlodipine Besylate (Norvasc -) 5 mg PO DAILY [facility] Last Admin: 03/08/18 10:08 Dose: 5 mg Ferrous Sulfate (Feosol -) 325 mg PO DAILY [facility] Last Admin: 03/08/18 10:08 Dose: 325 mg Triamterene/HCTZ (Dyazide 25/37.5mg) 1 cap PO DAILY [facility] Last Admin: 03/08/18 10:07 Dose: 1 cap - Objective Vital Signs: Vital Signs Temperature 98.1 F 03/08/18 10:00 Pulse Rate 100 H 03/08/18 10:00 Respiratory Rate 18 03/08/18 10:00 Blood Pressure 133/72 03/08/18 10:00 O2 Sat by Pulse Oximetry (%) 98 03/07/18 20:17 Constitutional: Yes: No Distress, Calm, Thin Neck: Yes: Supple Cardiovascular: Yes: Regular Rate and Rhythm Respiratory: Yes: Regular, CTA Bilaterally Gastrointestinal: Yes: Normal Bowel Sounds, Soft Edema: No Labs: CBC, BMP 03/07/18 06:00 03/08/18 05:35 INR, PTT INR 0.97 (0.82-1.09) 03/06/18 10:10 - ....Imaging EKG: Report Reviewed (Tele: NSR) Problem List - Problems (1) Falls frequently Code(s): R29.6 - REPEATED FALLS (2) HTN (hypertension) Code(s): I10 - ESSENTIAL (PRIMARY) HYPERTENSION Qualifiers: Hypertension type: essential hypertension Qualified Code(s): I10 - Essential (primary) hypertension (3) Hyperkalemia Code(s): E87.5 - HYPERKALEMIA (4) Nondisplaced fracture of left radius Code(s): S52.92XA - UNSP FRACTURE OF LEFT FOREARM, INIT FOR CLOS FX Qualifiers: Encounter type: initial encounter (5) Low back pain Code(s): M54.5 - LOW BACK PAIN Assessment/Plan 03/07/2018 Echo: Normal biventricular size and fxn, small effusion 1. Status post mechanical fall without evidence of syncope resulting in left radial nondisplaced fracture 2. Hypertension - improved control 3. History of substance abuse 4. Bronchial asthma 5. Degenerative joint disease/low back pain with disc disease/cervical disc disease 6. Hyperkalemia improved PLAN: 1. Continue Dyazide 25/37.5 qd, Norvasc 5 qd, monitor electrolytes 2. Ideally ACEI or ARB can be considered once K level normalizes 3. Consider orthopedic evaluation for left arm support 4. Follow MRI l/s spine, d/c telemetry, PT for gait training
--- NOTE | 2018-03-08 11:52 | CON.ORTH ---
Consult Reason for Consultation:: left hip and left elbow pain - Past Medical History Cardio/Vascular: Yes: HTN Pulmonary: Yes: Asthma, COPD - Past Surgical History Additional Surgical History: Back surgery (probable spine surgery) - Alcohol/Substance Use Hx Alcohol Use: Yes History of Substance Use: reports: Cocaine, Heroin, Marijuana - Smoking History Smoking history: Never smoked Have you smoked in the past 12 months: No Home Medications - Allergies Allergies/Adverse Reactions: Allergies Allergy/AdvReac Type Severity Reaction Status Date / Time propofol Allergy Verified 02/28/18 20:10 - Home Medications Home Medications: Ambulatory Orders Ammonium Lactate 1 ml MC BID 03/06/18 Calcium Carbonate [Calcium Antacid] 300 mg PO DAILY 03/06/18 Cyclobenzaprine HCl [Flexeril -] 5 mg PO BID 03/06/18 Ferrous Sulfate 325 mg PO DAILY 03/06/18 Fluticasone Prop 0.05% Nasal [Flonase -] 1 - 2 spray NS BID 03/06/18 Fluticasone/Salmeterol [Advair 250-50 Diskus] 1 each IH BID 03/06/18 Fosinopril Sodium 40 mg PO DAILY 03/06/18 Triamterene/Hydrochlorothiazid [Triamterene-Hctz 37.5-25 mg Cp] 1 each PO DAILY 03/06/18 Physical Exam for Ortho Vital Signs: Vital Signs Temperature 98.1 F 03/08/18 10:00 Pulse Rate 100 H 03/08/18 10:00 Respiratory Rate 18 03/08/18 10:00 Blood Pressure 133/72 03/08/18 10:00 O2 Sat by Pulse Oximetry (%) 98 03/07/18 20:17 Labs: CBC, BMP 03/07/18 06:00 03/08/18 05:35 INR, PTT INR 0.97 (0.82-1.09) 03/06/18 10:10 - Upper Extremity Elbow: Yes: Left, Ecchymosis, Tenderness, Other (minimal tenderness medially, no tenderness over radial head/neck, full rom, nvi) - Lower Extremity Hip: Yes: Exam WNL, Left, Other (nvi) Imaging - Results X-ray: Report Reviewed, Image Reviewed Assessment/Plan 72 year old male resident from [facility], with a significant past medical history of Asthma, COPD, Hepatitis C, chronic lower back pain (on tramadol), ambulates at baseline with walker who presents to the emergency department s/p fall today. As per nursing staff, patient was walking to the bathroom when he fell to the floor. Patient complained of L hip pain and EMS was called. In the ED, patient is a poor historian and is presenting varying histories to nurse and physician. Upon evaluation, patient denies fall however reports worsening L hip pain for years, 10/10 in severity, radiating to L groin. Patient denies any head trauma, neck pain, LOC. According to nursing staff, patient has been having recurrent falls and was seen at [facility] ED for the same complaint 3 days ago. Pt is not well known to the [place] staff as he is new there but they report he has been found on the side of his bed multiple times with unwitnessed falls. a/p- left hip and elbow contusions NTD PT eval wbat f/u with neurology for LS spine orthopedically stable ok to d/c from ortho pov d/w Dr. Mendosa
--- NOTE | 2018-03-08 18:04 | PN ---
Progress Note, Physician History of Present Illness: feeling good - Current Medication List Current Medications: Active Medications Amlodipine Besylate (Norvasc -) 5 mg PO DAILY [facility] Last Admin: 03/08/18 10:08 Dose: 5 mg Ferrous Sulfate (Feosol -) 325 mg PO DAILY [facility] Last Admin: 03/08/18 10:08 Dose: 325 mg Triamterene/HCTZ (Dyazide 25/37.5mg) 1 cap PO DAILY [facility] Last Admin: 03/08/18 10:07 Dose: 1 cap - Objective Vital Signs: Vital Signs Temperature 98.1 F 03/08/18 10:00 Pulse Rate 100 H 03/08/18 10:00 Respiratory Rate 18 03/08/18 10:00 Blood Pressure 133/72 03/08/18 10:00 O2 Sat by Pulse Oximetry (%) 98 03/08/18 09:00 Constitutional: Yes: No Distress HENT: Yes: Atraumatic Neck: Yes: Supple Cardiovascular: Yes: Regular Rate and Rhythm Respiratory: Yes: CTA Bilaterally Gastrointestinal: Yes: Normal Bowel Sounds Extremities: Yes: WNL Edema: No Peripheral Pulses WNL: Yes Neurological: Yes: Alert, Oriented Labs: CBC, BMP 03/07/18 06:00 03/08/18 05:35 INR, PTT INR 0.97 (0.82-1.09) 03/06/18 10:10 Problem List - Problems (1) Falls frequently Assessment/Plan: pt eval pt uses walker at home neuro consult reviewed checking b12 level Code(s): R29.6 - REPEATED FALLS (2) Syncope and collapse Assessment/Plan: cardiac enzymes negative cardiology consult reviewed Code(s): R55 - SYNCOPE AND COLLAPSE (3) Low back pain Assessment/Plan: prn pain meds Code(s): M54.5 - LOW BACK PAIN (4) HTN (hypertension) Assessment/Plan: on meds Code(s): I10 - ESSENTIAL (PRIMARY) HYPERTENSION Qualifiers: Hypertension type: essential hypertension Qualified Code(s): I10 - Essential (primary) hypertension (5) Hyperkalemia Assessment/Plan: improved Code(s): E87.5 - HYPERKALEMIA
[2018-03-09] MEDS: HEPARIN NA (PORCINE) 5,000 UNITS/ML 1ML VIAL SQ SCH ×3 (00:02→21:31)
--- NOTE | 2018-03-09 08:41 | PN ---
Progress Note (short form) - Note Progress Note: 72 year old male resident from [facility], with a significant past medical history of Asthma, COPD, Hepatitis C, chronic lower back pain (on tramadol), ambulates at baseline with walker who presents to the emergency department s/p fall today. As per nursing staff, patient was walking to the bathroom when he fell to the floor. Patient complained of L hip pain and EMS was called. In the ED, patient is a poor historian and is presenting varying histories to nurse and physician. Upon evaluation, patient denies fall however reports worsening L hip pain for years, 08/16 in severity, radiating to L groin. Patient denies any head trauma, neck pain, LOC. According to nursing staff, patient has been having recurrent falls and was seen at [facility] ED for the same complaint 3 days ago. Pt is not well known to the [facility] staff as he is new there but they report he has been found on the side of his bed multiple times with unwitnessed falls. -Pt. tells me he began having left leg weakness 3 years ago -this was followed by lumbar spine surgery but leg weakness did not improve, he clive been ambulating with a walker since with a foot drop and entire left leg weakness. He does not know when right leg became weak. Denies loosing consciousness during falls. FU HX OF LS spine surgery years ago (?[facility])known HX of left sided foot drop, though over last few days unable ot ambulate, usually able to use walker, +neck and low back pain , ? sensory changes-poor HX - Past Medical History Cardio/Vascular: Yes: HTN Pulmonary: Yes: Asthma, COPD - Past Surgical History Additional Surgical History: Back surgery (probable spine surgery) - Alcohol/Substance Use Hx Alcohol Use: Yes History of Substance Use: reports: Cocaine, Heroin, Marijuana - Smoking History Smoking history: Never smoked Have you smoked in the past 12 months: No Home Medications - Allergies Allergies/Adverse Reactions: Allergies Allergy/AdvReac Type Severity Reaction Status Date / Time propofol Allergy Verified 02/28/18 20:10 - Home Medications Home Medications: Ambulatory Orders Ammonium Lactate 1 ml MC BID 03/06/18 Calcium Carbonate [Calcium Antacid] 300 mg PO DAILY 03/06/18 Cyclobenzaprine HCl [Flexeril -] 5 mg PO BID 03/06/18 Ferrous Sulfate 325 mg PO DAILY 03/06/18 Fluticasone Prop 0.05% Nasal [Flonase -] 1 - 2 spray NS BID 03/06/18 Fluticasone/Salmeterol [Advair 250-50 Diskus] 1 each IH BID 03/06/18 Fosinopril Sodium 40 mg PO DAILY 03/06/18 Triamterene/Hydrochlorothiazid [Triamterene-Hctz 37.5-25 mg Cp] 1 each PO DAILY 03/06/18 Physical Exam-Neuro: LUE weakness TR 4/5 and interoseei BL IP 3/5 BL, hams 4/5, TA L 3/5 and R 4/5 Vital Signs: Labs: CBCD WBC 5.3 K/mm3 (4.0-10.0) 03/07/18 06:00 RBC 3.93 M/mm3 (4.00-5.60) L 03/07/18 06:00 Hgb 11.8 GM/dL (11.7-16.9) D 03/07/18 06:00 Hct 35.6 % (35.4-49) 03/07/18 06:00 MCV 90.4 fl (80-96) 03/07/18 06:00 MCHC 33.3 g/dl (32.0-35.9) 03/07/18 06:00 RDW 13.8 % (11.9-15.9) 03/07/18 06:00 Plt Count 121 K/MM3 (134-434) L 03/07/18 06:00 MPV 9.8 fl (7.5-11.1) 03/07/18 06:00 CMP Sodium 139 mmol/L (136-145) 03/07/18 06:00 Potassium 5.5 mmol/L (3.5-5.1) H 03/07/18 06:00 Chloride 109 mmol/L (98-107) H 03/07/18 06:00 Carbon Dioxide 24 mmol/L (21-32) 03/07/18 06:00 Anion Gap 6 (8-16) L 03/07/18 06:00 BUN 30 mg/dL (7-18) H D 03/07/18 06:00 Creatinine 0.8 mg/dL (0.7-1.3) D 03/07/18 06:00 Creat Clearance w eGFR > 60 (>60) 03/07/18 06:00 Calcium 8.8 mg/dL (8.5-10.1) 03/07/18 06:00 Total Biliru bin 0.6 mg/dL (0.2-1.0) 03/07/18 06:00 AST 67 U/L (15-37) H 03/07/18 06:00 ALT 61 U/L (12-78) D 03/07/18 06:00 Alkaline Phosphatase 98 U/L (45-117) 03/07/18 06:00 Total Protein 6.9 g/dl (6.4-8.2) 03/07/18 06:00 Albumin 3.2 g/dl (3.4-5.0) L 03/07/18 06:00 - Neuro Exam Level Of Consciousness: Yes: Alert, Oriented to Person, Oriented to Place Dominant Hand: Right Mini Mental Exam: Intact HIF DTR's: 0 Left Achilles, 0 Right Achilles (Bilat knee reflexes absent), 1+ Left Bicep, 1+ Right Bicep, 1+ Left Tricep, 1+ Right Tricep, 1+ Left Brachioradialis , 1+ Right Brachioradialis Motor Strength: 2/5: Left Leg, 3/5: Left Leg, 5/5: Left Arm, Right Arm Gait: Other (Unable to stand) Imaging - Results Cat Scan: Report Reviewed (Head-moderate atrophy, chronic sinusitis), Other (DJD , fusion C3/C4 on CT Cspine) Assessment/Plan Pt. with multiple falls, prior LS spine surgery and foot drop with progressive gait impairment, now almost paeraplegic L >R r/o worseing LS spine disease though weakness and wasting in the Left UE suggests cervical myelopathy, perhaps at C6-C7 awaiting MRI C/T and LSPINE EMG LE/REHAB CONSULT NEUROSURGICAL CONSULT Dr FLOR
[2018-03-09] MEDS ORDERED: PT OWN MED DRAWER 7, Y5N ONE (08:42)
[2018-03-09] MEDS: TRIAMTERENE AND HCTZ - 37.5 MG/25 MG CAPSULE PO SCH (09:54)
[2018-03-09] MEDS: FERROUS SO4 325 MG TABLET (FP) PO SCH (09:54)
[2018-03-09] MEDS: amLODIPine BESYLATE 5 MG TABLET (FP) PO SCH (09:54)
--- NOTE | 2018-03-09 14:47 | PN ---
Progress Note, Physician Chief Complaint: Not in distress History of Present Illness: Patient was seen and examined. Awake and alert. Chart was reviewed Denies chest pain, SOB or palpitations - Current Medication List Current Medications: Active Medications Amlodipine Besylate (Norvasc -) 5 mg PO DAILY [facility] Last Admin: 03/09/18 09:54 Dose: 5 mg Ferrous Sulfate (Feosol -) 325 mg PO DAILY [facility] Last Admin: 03/09/18 09:54 Dose: 325 mg Heparin Sodium (Porcine) (Heparin -) 5,000 unit SQ BID [facility] Last Admin: 03/09/18 09:54 Dose: 5,000 unit Triamterene/HCTZ (Dyazide 25/37.5mg) 1 cap PO DAILY [facility] Last Admin: 03/09/18 09:54 Dose: 1 cap - Objective Vital Signs: Vital Signs Temperature 98.2 F 03/09/18 13:44 Pulse Rate 98 H 03/09/18 13:44 Respiratory Rate 18 03/09/18 13:44 Blood Pressure 130/72 03/09/18 13:44 O2 Sat by Pulse Oximetry (%) 99 03/08/18 21:00 HENT: Yes: Atraumatic Neck: Yes: Supple Cardiovascular: Yes: Regular Rate and Rhythm, Murmur (Soft SM), S1, S2 Respiratory: Yes: CTA Bilaterally Gastrointestinal: Yes: Normal Bowel Sounds, Soft. No: Tenderness Edema: No Additional Findings/Remarks: - Review of Systems Constitutional: reports: Weakness. denies: Chills, Fever Cardiovascular: denies: Chest Pain, Palpitations, Shortness of Breath Respiratory: denies: Cough, Hemoptysis, Orthopnea, PND, SOB, SOB on Exertion Gastrointestinal: denies: Abdominal Pain, Constipation, Diarrhea, Melena, Nausea , Rectal Bleeding, Vomiting Musculoskeletal: reports: Muscle Weakness Neurological: reports: Unsteady Gait, Weakness. denies: Confusion, Dizziness, Headache, Numbness, Seizure, Syncope Labs: CBC, BMP 03/07/18 06:00 03/08/18 05:35 INR, PTT INR 0.97 (0.82-1.09) 03/06/18 10:10 Problem List - Problems (1) Fall Code(s): W19.XXXA - UNSPECIFIED FALL, INITIAL ENCOUNTER Qualifiers: Encounter type: initial encounter Qualified Code(s): W19.XXXA - Unspecified fall, initial encounter (2) Nondisplaced fracture of left radius Code(s): S52.92XA - UNSP FRACTURE OF LEFT FOREARM, INIT FOR CLOS FX Qualifiers: Encounter type: initial encounter (3) Bronchial asthma Code(s): J45.909 - UNSPECIFIED ASTHMA, UNCOMPLICATED Qualifiers: Asthma severity: mild Asthma persistence: unspecified Asthma complication type: uncomplicated Qualified Code(s): J45.909 - Unspecified asthma, uncomplicated (4) HTN (hypertension) Code(s): I10 - ESSENTIAL (PRIMARY) HYPERTENSION Qualifiers: Hypertension type: essential hypertension Qualified Code(s): I10 - Essential (primary) hypertension (5) Hyperkalemia Code(s): E87.5 - HYPERKALEMIA Assessment/Plan 1. Status post mechanical fall without evidence of syncope resulting in left radial nondisplaced fracture 2. Hypertension 3. History of substance abuse 4. Bronchial asthma 5. Degenerative joint disease/low back pain with disc disease/cervical disc disease 6. Hyperkalemia 7. Elevated LFT PLAN: 1. Transthoracic echocardiography reviewed 2. Continue current anti-hypertensive with dyazide and Amlodipine 3. Ideally ACEI or ARB can be considered if K level normalizes 4. Orthopedic input noted. Spine MRI pending 5. Monitor electrolytes Further plans are to follow Cem Sanchez MD
--- NOTE | 2018-03-09 15:26 | PN ---
Progress Note, Physician - Current Medication List Current Medications: Active Medications Amlodipine Besylate (Norvasc -) 5 mg PO DAILY [facility] Last Admin: 03/09/18 09:54 Dose: 5 mg Ferrous Sulfate (Feosol -) 325 mg PO DAILY [facility] Last Admin: 03/09/18 09:54 Dose: 325 mg Heparin Sodium (Porcine) (Heparin -) 5,000 unit SQ BID [facility] Last Admin: 03/09/18 09:54 Dose: 5,000 unit Triamterene/HCTZ (Dyazide 25/37.5mg) 1 cap PO DAILY [facility] Last Admin: 03/09/18 09:54 Dose: 1 cap - Objective Vital Signs: Vital Signs Temperature 98.2 F 03/09/18 13:44 Pulse Rate 98 H 03/09/18 13:44 Respiratory Rate 18 03/09/18 13:44 Blood Pressure 130/72 03/09/18 13:44 O2 Sat by Pulse Oximetry (%) 99 03/08/18 21:00 Constitutional: Yes: No Distress HENT: Yes: Atraumatic Neck: Yes: Supple Cardiovascular: Yes: Regular Rate and Rhythm Respiratory: Yes: CTA Bilaterally Gastrointestinal: Yes: Normal Bowel Sounds Extremities: Yes: WNL Peripheral Pulses WNL: Yes Neurological: Yes: Alert, Oriented Labs: CBC, BMP 03/07/18 06:00 03/08/18 05:35 INR, PTT INR 0.97 (0.82-1.09) 03/06/18 10:10 Problem List - Problems (1) Falls frequently Assessment/Plan: going to rehab Code(s): R29.6 - REPEATED FALLS (2) Syncope and collapse Assessment/Plan: cardiac enzymes negative cardiology consult reviewed Code(s): R55 - SYNCOPE AND COLLAPSE (3) Low back pain Assessment/Plan: prn pain meds Code(s): M54.5 - LOW BACK PAIN (4) HTN (hypertension) Assessment/Plan: on meds Code(s): I10 - ESSENTIAL (PRIMARY) HYPERTENSION Qualifiers: Hypertension type: essential hypertension Qualified Code(s): I10 - Essential (primary) hypertension (5) Hyperkalemia Assessment/Plan: improved Code(s): E87.5 - HYPERKALEMIA
--- NOTE | 2018-03-09 17:44 | DS ---
Physical Examination Vital Signs: Vital Signs Temperature 98.2 F 03/09/18 13:44 Pulse Rate 98 H 03/09/18 13:44 Respiratory Rate 18 03/09/18 13:44 Blood Pressure 130/72 03/09/18 13:44 O2 Sat by Pulse Oximetry (%) 99 03/08/18 21:00 Labs: CBC, BMP 03/07/18 06:00 03/08/18 05:35 Discharge Summary Reason For Visit: FALL,GAIT PROBLEM Current Active Problems Bronchial asthma (Acute) Fall (Acute) Falls frequently (Acute) HTN (hypertension) (Acute) Hyperkalemia (Acute) Nondisplaced fracture of left radius (Acute) Syncope and collapse (Acute) Condition: Stable - Instructions - Home Medications Comprehensive Discharge Medication List: Ambulatory Orders Ammonium Lactate 1 ml MC BID 03/06/18 Calcium Carbonate [Calcium Antacid] 300 mg PO DAILY 03/06/18 Ferrous Sulfate 325 mg PO DAILY 03/06/18 Fluticasone Prop 0.05% Nasal [Flonase -] 1 - 2 spray NS BID 03/06/18 Fluticasone/Salmeterol [Advair 250-50 Diskus] 1 each IH BID 03/06/18 Fosinopril Sodium 40 mg PO DAILY 03/06/18 Triamterene/Hydrochlorothiazid [Triamterene-Hctz 37.5-25 mg Cp] 1 each PO DAILY 03/06/18 Amlodipine Besylate [Norvasc -] 5 mg PO DAILY tablet 03/09/18
--- NOTE | 2018-03-09 20:25 | CONS ---
DATE OF CONSULTATION: 03/09/2018 REFERRING PHYSICIAN: Russ Johnson DO DATE OF ADMISSION: 03/07/2018 HISTORY OF PRESENT ILLNESS: The patient is a 72-year-old man with past medical history of lumbar surgery and chronic left foot drop, who was referred for electrodiagnostic evaluation of the lower extremities. Patient has weakness throughout his left lower extremity and seems to be a poor historian. He developed pain in his left hip, left elbow, and has been seen by Orthopedics, without diagnosed him with contusions. The patient was also seen by Neurology and underwent multiple MRIs including cervical, thoracic, and lumbar spine, which were reviewed. Please refer to the reports for details. There was no mention of any thoracic or lumbar stenosis but multiple bulging disks. In the cervical spine, he has marked degenerative narrowing, C4-5 disk space, with disk bulging, posterior spur formation impinging the anterior surface of the cervical cord. The patient again was referred for diagnostic evaluation. He does not complain of a lot of pain at this point other than the left hip and elbow, but he seems to be, again, a poor historian. REVIEW OF PAST MEDICAL AND SURGICAL HISTORY: Asthma, COPD, chronic back pain, chronic left foot drop, lumbar surgery, hypertension. SOCIAL HISTORY: Apparently was living at [facility]. He states with a left ankle-foot arthrosis, he can ambulate with a cane, uncertain how accurate this is, as he was evaluated here at [facility] and required moderate assistance of 2 for sit to stand transfer, only able to ambulate a few feet with max assist of 2, with bilateral lower extremity weakness noted. CURRENT BLOOD WORK: He has a normal CBC. WBC is 5.3, hemoglobin 11.8, platelet count slightly low at 121 as of March 07. His chemistry showed elevated BUN 22, creatinine 1.0. On admission, he had slight elevation of potassium at 5.5. Troponins were normal. His albumin was low at 3.2. Vitamin B12 was normal at 558. He also had a TSH which was normal at 2.37. REVIEW OF SYSTEMS: He denies any dizziness, lightheadedness, any blurry vision or double vision, any nausea vomiting. No difficulty swallowing or chewing. He does get dyspneic with exertion at times. No abdominal discomfort. No bowel or bladder complaints that are new but he does lose his urine at times. He has some numbness in the dorsum of the left foot but denies any other numbness in his upper or lower extremities. He does note weakness throughout his left leg but denies any right lower extremity weakness. He has lost a lot of weight. EXAMINATION: General: On examination, the patient is a thin elderly man, seen lying on a stretcher. He is in no acute distress. For the most part, he is awake and cooperative with examination. His cranial nerves 2-12 appear grossly intact. He has no obvious facial weakness. Neck: Supple. Extremities: Without any pitting edema or calf tenderness. Neuromuscular: He is awake, alert, cooperative. He has some atrophy of the intrinsics of the left hand with diminished sensation to the 5th digit to pinprick. Mildly diminished recruitment internship. Good shoulder girdle strength. Good elbow flexion, elbow extension. In the lower extremities, he has weakness throughout his left lower extremity, especially in his dorsiflexors, which are 1 to 2; hip abductors 1 to 2; knee flexors 1 to 2; knee extensors are 3+; plantar flexors 3+. Right lower extremity has better strength, at least 3+ proximal and 4+ distally; diminished sensation, mainly in the dorsum of the left hand and left 5th digit. For results of EMG and nerve conduction study, please refer to report for details. OVERALL IMPRESSION: 1. 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 2. 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 3. 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 4. There are fasciculations but no diffuse muscle membrane instability in the right upper extremity or definite motor neuron disease. 5. Chronic left foot drop, probably back etiology. 6. Diffuse weakness. Rule out cervical stenosis. 7. Chronic obstructive pulmonary disease. 8. Hypertension. 9. Thrombocytopenia. 10. Hypoalbuminemia. PLAN, SUGGESTION: 1. Physical therapy to continue. 2. May require new AFO. Patient's left ankle-foot arthrosis appears too big, at least in the proximal calf. 3. Out of bed to chair. 4. Neurologic followup. 5. Unable to evaluate lumbar spine MRI on imaging. Will attempt to review. 6. DVT prophylaxis until more mobile. Patient is on subcutaneous heparin. Would continue. 7. Skin precautions. Monitor for heel breakdown or erythema. 8. Bowel regimen, monitor for constipation. 9. Disposition: Short-term rehab in a long term facility. Thank you for this referral. SHERRY LOVELL M.D. CITLALLI/[id number]
[2018-03-10] MEDS ORDERED: PT OWN MED DRAWER 7, Y5N ONE (09:04)
[2018-03-10] MEDS: FERROUS SO4 325 MG TABLET (FP) PO SCH (09:37)
[2018-03-10] MEDS: amLODIPine BESYLATE 5 MG TABLET (FP) PO SCH (09:37)
[2018-03-10] MEDS: TRIAMTERENE AND HCTZ - 37.5 MG/25 MG CAPSULE PO SCH (09:37)
[2018-03-10] MEDS: HEPARIN NA (PORCINE) 5,000 UNITS/ML 1ML VIAL SQ SCH (09:38)
[2018-03-10 10:09] VITALS: BP 138/81; PULSE 92; TEMP 97.3
--- NOTE | 2018-03-10 12:55 | DS ---
Physical Examination Vital Signs: Vital Signs Temperature 97.3 F L 03/10/18 10:00 Pulse Rate 92 H 03/10/18 10:00 Respiratory Rate 18 03/10/18 10:00 Blood Pressure 138/81 03/10/18 10:00 O2 Sat by Pulse Oximetry (%) 99 03/10/18 09:00 Constitutional: Yes: No Distress HENT: Yes: Atraumatic Neck: Yes: Supple Cardiovascular: Yes: Regular Rate and Rhythm Respiratory: Yes: CTA Bilaterally Gastrointestinal: Yes: Normal Bowel Sounds Extremities: Yes: WNL Edema: No Peripheral Pulses WNL: Yes Neurological: Yes: Alert, Oriented Labs: CBC, BMP 03/07/18 06:00 03/08/18 05:35 Discharge Summary Reason For Visit: FALL,GAIT PROBLEM Current Active Problems Bronchial asthma (Acute) Fall (Acute) Falls frequently (Acute) HTN (hypertension) (Acute) Hyperkalemia (Acute) Nondisplaced fracture of left radius (Acute) Syncope and collapse (Acute) Condition: Stable - Instructions - Home Medications Comprehensive Discharge Medication List: Ambulatory Orders Ammonium Lactate 1 ml MC BID 03/06/18 Calcium Carbonate [Calcium Antacid] 300 mg PO DAILY 03/06/18 Ferrous Sulfate 325 mg PO DAILY 03/06/18 Fluticasone Prop 0.05% Nasal [Flonase -] 1 - 2 spray NS BID 03/06/18 Fluticasone/Salmeterol [Advair 250-50 Diskus] 1 each IH BID 03/06/18 Fosinopril Sodium 40 mg PO DAILY 03/06/18 Triamterene/Hydrochlorothiazid [Triamterene-Hctz 37.5-25 mg Cp] 1 each PO DAILY 03/06/18 Amlodipine Besylate [Norvasc -] 5 mg PO DAILY tablet 03/09/18 nc snf
== END 2018-03-10 13:58 | DRG 563 ==
LOC: JER 09:22 → JERBED 14:05 → J4S 17:41 → OBSVTOIN 03-07 19:05
PROVIDERS: ADMIT Internal Medicine; ATTEND Internal Medicine
DX: S52.135A Nondisplaced fracture of neck of left radius, initial encounter for closed fracture (principal); S50.02XA Contusion of left elbow, initial encounter; S70.02XA Contusion of left hip, initial encounter; W17.89XA Other fall from one level to another, initial encounter; Y93.01 Activity, walking, marching and hiking; Y92.121 Bathroom in nursing home as the place of occurrence of the external cause; Y99.8 Other external cause status; R26.9 Unspecified abnormalities of gait and mobility; M54.5 Low back pain; M21.371 Foot drop, right foot; F12.10 Cannabis abuse, uncomplicated; F11.10 Opioid abuse, uncomplicated; F14.10 Cocaine abuse, uncomplicated; F10.10 Alcohol abuse, uncomplicated; J44.9 Chronic obstructive pulmonary disease, unspecified; B19.20 Unspecified viral hepatitis C without hepatic coma; I45.10 Unspecified right bundle-branch block; Z91.81 History of falling; Z87.891 Personal history of nicotine dependence; E87.5 Hyperkalemia
CPT/HCPCS: 36415; 70450-TC; 71045-TC-FY; 72125-TC; 72141-TC; 72146-TC; 72148-TC; 72170-TC-FY; 73070-TC-LT-FY; 73090-TC-LT-FY; 80053; 80061; 81003; 82550; 82553; 82607; 83721; 83735; 84443; 84484; 85025; 85610; 85730; 86850; 86900; 86901; 87086; 93005; 93010; 93306-TC; 95860-TC; 97116-GP; 97162-GP; 99284-25; G0378; J0131; J1644

== ENCOUNTER 2019-08-15 10:51 | Day surgery (SDC) | payer OTHER ==
[2019-08-14 13:47] VITALS: BMI 22.5
[2019-08-15] MEDS ORDERED: LIDOCAINE HCL/PF 2% SDV 5ML VIAL ONE (11:54)
[2019-08-15 12:22] VITALS: TEMP 98.3
[2019-08-15 12:44] VITALS: BP 128/64; PULSE 69
--- NOTE | 2019-08-17 16:11 | PATH ---
Surgical Pathology Report Patient Name: MOLLY AZAR [facility] Rec. #: [id number] /Age/Gender: 1945 (Age: 73) / M Account: [id number] Location: [facility] Taken: 08/15/2019 Received: 08/15/2019 Reported: 08/17/2019 Physicians: Noemi Reyes M.D. Specimen(s) Received A: SECOND PORTION DUODENUM B: BIOPSY GASTRIC ANTRUM C: GE JUNCTION Clinical History Dyspepsia. Postoperative diagnosis: Gastritis Final Diagnosis A. SECOND PORTION DUODENUM, BIOPSY: DUODENAL MUCOSA WITH NO PATHOLOGIC FINDINGS. B. GASTRIC ANTRUM, BIOPSY: MILD CHRONIC GASTRITIS WITH FEATURES OF REACTIVE GASTROPATHY. IMMUNOSTAIN IS NEGATIVE FOR H. PYLORI ORGANISMS. C. GE JUNCTION, BIOPSY: ESOPHAGOGASTRIC JUNCTIONAL (SQUAMOCOLUMNAR) MUCOSA SHOWING FOCAL INTESTINAL METAPLASIA, COMPATIBLE WITH GRAHAM'S ESOPHAGUS IN CONJUNCTION WITH APPROPRIATE ENDOSCOPIC FINDINGS. NEGATIVE FOR INTESTINAL METAPLASIA. Electronically Signed Daisy Romero M.D. Gross Description A. Received in formalin, labeled "second portion duodenum" is a borges, irregular portion of soft tissue measuring 0.3 cm. in greatest dimension. The specimen is submitted in toto in one cassette. B. Received in formalin, labeled "gastric antrum" is a borges, irregular portion of soft tissue measuring 0.2 cm. in greatest dimension. The specimen is submitted in toto in one cassette. C. Received in formalin, labeled "GE junction" is a borges, irregular portion of soft tissue measuring 0.3 cm. in greatest dimension. The specimen is submitted in toto in one cassette.
== END 2019-08-15 12:55 | disposition home or self-care (01) ==
LOC: FASU-ENDO 10:51
PROVIDERS: ATTEND Internal Medicine Gastroenterology
PROC: 0DB68ZX Excision of Stomach, Via Natural or Artificial Opening Endoscopic, Diagnostic (ICD-10-PCS; 2019-08-15)
PROC: 0DB98ZX Excision of Duodenum, Via Natural or Artificial Opening Endoscopic, Diagnostic (ICD-10-PCS; principal; 2019-08-15 11:55)
DX: K22.70 Barrett's esophagus without dysplasia (principal); K29.50 Unspecified chronic gastritis without bleeding; K31.9 Disease of stomach and duodenum, unspecified; R10.13 Epigastric pain; R11.0 Nausea
CPT/HCPCS: 82962; 88305-TC; 88342-TC

== ENCOUNTER 2019-09-12 10:09 | Day surgery (SDC) | payer OTHER ==
[2019-09-10 13:27] VITALS: BMI 23.3
[2019-09-12] MEDS ORDERED: LIDOCAINE HCL/PF 2% SDV 5ML VIAL ONE (10:48)
[2019-09-12] MEDS ORDERED: PROPOFOL 20 ML ONE ×2 (10:48)
[2019-09-12 11:02] VITALS: TEMP 97.4
[2019-09-12 12:45] VITALS: BP 119/79; PULSE 89
== END 2019-09-12 12:40 ==
LOC: FASU-ENDO 10:09
PROVIDERS: ATTEND Internal Medicine Gastroenterology
PROC: 0DJD8ZZ Inspection of Lower Intestinal Tract, Via Natural or Artificial Opening Endoscopic (ICD-10-PCS; principal; 2019-09-12 11:42)
DX: Z12.11 Encounter for screening for malignant neoplasm of colon (principal); K64.8 Other hemorrhoids
CPT/HCPCS: 82962

== ENCOUNTER 2020-12-10 12:00 | Emergency (ER) | payer OTHER ==
[2020-12-10 12:20] VITALS: BMI 24.5
[2020-12-10 13:59] LABS: INR 1.08 (0.83-1.09); PROTHROMBIN TIME (PATIENT) 13.3 SEC (9.7-13.0)
[2020-12-10 14:01] LABS: ACTIVATED PTT 33.3 SECONDS (25.2-36.5)
[2020-12-10 14:10] LABS: POTASSIUM 4.4 mmol/L (3.5-5.1)
[2020-12-10 14:13] LABS: CALCIUM 8.7 mg/dL (8.5-10.1)
[2020-12-10 14:14] LABS: ALBUMIN 2.7 g/dl (3.4-5.0)
[2020-12-10 14:17] LABS: CREATININE 1.4 mg/dL (0.55-1.3)
[2020-12-10 14:19] LABS: TOT PROT 7.7 g/dl (6.4-8.2)
[2020-12-10 14:22] LABS: BASO % 0.7 % (0-2.0); HEMATOCRIT 26.1 % (35.4-49); LYMPH % 24.1 % (8-40); MCHC 30.7 g/dl (32.0-35.9); MEAN CELL VOLUME 61.4 fl (80-96); MEAN PLT VOLUME 9.1 fl (7.5-11.1); MONO % 11.9 % (3.8-10.2); NEUT % 60.3 % (42.8-82.8); PLATELET COUNT 211 K/MM3 (134-434); RBC 4.25 M/mm3 (4.00-5.60); RDW 24.2 % (11.9-15.9); WHITE BLOOD COUNT 6.3 K/mm3 (4.0-10.0)
[2020-12-10 14:29] LABS: MCH 18.8 pg (25.7-33.7)
[2020-12-10 16:42] LABS: ANISOCYTOSIS 2+; MACROCYTOSIS 0; PLATELET ESTIMATE NORMAL; TARGET CELLS 1+
[2020-12-10 17:30] VITALS: BP 123/54; PULSE 78; TEMP 97.8
== END 2020-12-10 20:07 | disposition home or self-care (01) ==
LOC: JER 12:00
DX: D64.9 Anemia, unspecified (principal)
CPT/HCPCS: 36415; 80053; 82272; 85025; 85610; 85730; 86850; 86900; 86901; 99283-25

== ENCOUNTER 2021-02-18 17:07 | Emergency (ER) | payer OTHER ==
[2021-02-18 17:30] VITALS: BMI 25.8
[2021-02-18 17:44] LABS: BASO % 0.8 % (0-2.0); EOS % 5.9 % (0-4.5); HEMATOCRIT 23.8 % (35.4-49); HEMOGLOBIN 7.1 GM/dL (11.7-16.9); LYMPH % 27.2 % (8-40); MCH 16.9 pg (25.7-33.7); MCHC 29.7 g/dl (32.0-35.9); MEAN PLT VOLUME 8.9 fl (7.5-11.1); MONO % 12.7 % (3.8-10.2); NEUT % 53.4 % (42.8-82.8); PLATELET COUNT 119 K/MM3 (134-434); RBC 4.18 M/mm3 (4.00-5.60); RDW 22.2 % (11.9-15.9); WHITE BLOOD COUNT 7.3 K/mm3 (4.0-10.0)
[2021-02-18 18:33] LABS: ANISOCYTOSIS 3+; MACROCYTOSIS 0; OVALOCYTE 1+; PLATELET ESTIMATE DECREASED; TARGET CELLS 1+
[2021-02-18 23:20] VITALS: BP 133/67; PULSE 73; TEMP 97.7
== END 2021-02-19 00:05 ==
LOC: JER 17:07
DX: R71.8 Other abnormality of red blood cells (principal)
CPT/HCPCS: 36415; 36430; 82272; 85025; 86850; 86900; 86901; 86922; 99283-25; P9058

== ENCOUNTER 2021-02-25 10:17 | Day surgery (SDC) | payer OTHER ==
[2021-01-19 15:19] VITALS: BMI 23.0
[2021-02-25 10:56] VITALS: TEMP 97.8
[2021-02-25 12:23] VITALS: BP 130/61; PULSE 74
== END 2021-02-25 13:40 | disposition home or self-care (01) ==
LOC: FASU-ENDO 10:17
PROVIDERS: ATTEND Internal Medicine Gastroenterology
PROC: 0DJD8ZZ Inspection of Lower Intestinal Tract, Via Natural or Artificial Opening Endoscopic (ICD-10-PCS; principal; 2021-02-25 11:29)
DX: D12.2 Benign neoplasm of ascending colon (principal); K64.0 First degree hemorrhoids; K64.8 Other hemorrhoids; D64.9 Anemia, unspecified; Z88.8 Allergy status to other drugs, medicaments and biological substances
CPT/HCPCS: 82962; 88305-TC

== ENCOUNTER 2022-11-04 09:12 | Inpatient (IN) | payer OTHER ==
[2022-11-04] MEDS ORDERED: ATROPINE SULFATE 1 MG/10 ML DISP.SYRIN ONE (09:26)
[2022-11-04 09:33] VITALS: BMI 25.5
[2022-11-04] MEDS ORDERED: ALBUTEROL SO4 2.5/IPRATROPIUM 0.5 INH SOL 3 ML VIAL.NEB. NEB ONE ×3 (09:36→10:58)
[2022-11-04] MEDS ORDERED: PIPERACILLIN/TAZOB 3.375 GM 3.375 GM in DEXTROSE 5%-WATER - 50 ML IVPB ONE (10:07)
[2022-11-04] MEDS ORDERED: DEXTROSE 50%-WATER - 25 GM/50 ML VIAL IVPUSH ONE (10:08)
[2022-11-04 10:12] LABS: VENOUS O2 SATURATION 68.8 % (70-80); VENOUS PCO2 60.3 mmHg (38-52); VENOUS PH 7.242 (7.310-7.410)
[2022-11-04] MEDS ORDERED: DEXTROSE 50%-WATER 25 GM/50 ML DISP.SYRIN ONE (10:15)
[2022-11-04] MEDS ORDERED: PIPERACILLIN/TAZOB 3.375 GM 3.375 GM/50 ML BAG IVPB ONE (10:15)
[2022-11-04 10:20] LABS: BASO % 0.2 % (0-2.0); EOS % 2.5 % (0-4.5); HEMATOCRIT 39.4 % (35.4-49); HEMOGLOBIN 12.1 GM/dL (11.7-16.9); LYMPH % 29.3 % (8-40); MCH 25.2 pg (25.7-33.7); MCHC 30.6 g/dl (32.0-35.9); MEAN CELL VOLUME 82.5 fl (80-96); MEAN PLT VOLUME 9.1 fl (7.5-11.1); MONO % 6.8 % (3.8-10.2); NEUT % 61.2 % (42.8-82.8); PLATELET COUNT 156 10^3/uL (134-434); RBC 4.78 M/mm3 (4.00-5.60); RDW 19.5 % (11.9-15.9); WHITE BLOOD COUNT 8.3 K/mm3 (4.0-10.0)
[2022-11-04 10:24] LABS: INR 1.06 (0.83-1.09); PROTHROMBIN TIME (PATIENT) 12.2 SEC (9.7-13.0)
[2022-11-04 10:27] LABS: ACTIVATED PTT 42.2 SECONDS (25.2-36.5)
[2022-11-04 10:34] LABS: EPI CELLS 29 /uL (0-25.1); HYALINE CASTS 3 /uL (0-3.1); URINE APPEARANCE TURBID; URINE BACTERIA >9,000 /uL (0-1359); URINE BILIRUBIN NEGATIVE (NEGATIVE); URINE COLOR YELLOW; URINE GLUCOSE (UA) NEGATIVE (NEGATIVE); URINE KETONE NEGATIVE (NEGATIVE); URINE LEUK ESTERASE 3+ (NEGATIVE); URINE NITRITE POSITIVE (NEGATIVE); URINE PROTEIN 2+ (NEGATIVE); URINE UROBILINOGEN 0.2 mg/dL (0.2-1.0); URINE WBC 28075 /uL (0-25.8)
[2022-11-04 10:41] LABS: URINE RBC 332.6 /uL (0-23.9); YEAST NEGATIVE (NEGATIVE)
[2022-11-04 10:43] LABS: CHLORIDE 111 mmol/L (98-107); SODIUM 143 mmol/L (136-145)
[2022-11-04 10:44] LABS: CALCIUM 8.7 mg/dL (8.5-10.1)
[2022-11-04 10:45] LABS: ALBUMIN 3.2 g/dl (3.4-5.0); ANION GAP 8 MMOL/L (8-16); BLOOD UREA NITROGEN 50.1 mg/dL (7-18); CO2 24 mmol/L (21-32)
[2022-11-04 10:49] LABS: CREATININE 1.9 mg/dL (0.55-1.3); SGOT/AST 68 U/L (15-37); SGPT/ALT 51 U/L (13-61)
[2022-11-04 10:50] LABS: BILIRUBIN,TOTAL 0.5 mg/dL (0.2-1); TOT PROT 7.9 g/dl (6.4-8.2)
[2022-11-04 10:51] LABS: ALK PHOS 116 U/L (45-117)
[2022-11-04] MEDS ORDERED: VANCOMYCIN 1 GM in D5W (PRE-DOCKED) 1,000 MG/250 ML IVPB ONE (10:57)
[2022-11-04 10:59] LABS: ARTERIAL BLD GAS O2 SATURATION 92.6 % (95-98); ARTERIAL BLOOD GAS BASE EXCESS -5.4 mmol/L (-2-2); ARTERIAL BLOOD GAS PO2 69.6 mmHg (80-100); ARTERIAL BLOOD GAS pH 7.317 (7.350-7.450)
[2022-11-04 11:01] LABS: GLUCOSE,RANDOM 31 mg/dL (74-106)
[2022-11-04 11:02] LABS: ALLENS TEST POSITIVE
[2022-11-04 11:03] LABS: VENT MODE PSV; VENT RATE 8
[2022-11-04] MEDS ORDERED: REMDESIVIR 200 MG in SODIUM CHLORIDE 250 ML IVPB ONE (11:27)
[2022-11-04] MEDS ORDERED: VANCOMYCIN/WATER FOR INJ (PEG) 1,000 MG/200 ML BAG IVPB ONE (11:32)
[2022-11-04] MEDS ORDERED: DEXAMETHASONE SOD PHOSPHATE 20 MG/5 ML VIAL IVPB ONE (11:47)
[2022-11-04] MEDS ORDERED: DEXAMETHASONE SOD PHOSPHATE 10 MG/1 ML VIAL ONE (12:00)
[2022-11-04] MEDS ORDERED: DEXAMETHASONE SOD PHOSPHATE 10 MG/1 ML VIAL IVPB ONE (12:00)
[2022-11-04] MEDS ORDERED: ACETAMINOPHEN 1000 MG/100 ML BAG IVPB ONE (12:30)
[2022-11-04] MEDS ORDERED: ACETAMINOPHEN INJECTION 100 ML IVPB ONE (12:33)
[2022-11-04 16:55] LABS: LACTIC ACID 2.3 mmol/L (0.4-2.0)
[2022-11-04] MEDS: CEFTRIAXONE 1 GM in DEXTROSE 5%-WATER - 50 ML IVPB SCH (18:43)
[2022-11-04] MEDS ORDERED: CEFTRIAXONE 1 GM/50 ML BAG ONE (18:44)
[2022-11-04] MEDS: DEXTROSE 5%-0.45% SALINE 1,000 ML IV SCH (19:56)
[2022-11-05] MEDS: DEXAMETHASONE SOD PHOSPHATE 10 MG/1 ML VIAL IVPB SCH (10:22)
[2022-11-05] MEDS: CEFTRIAXONE 1 GM in DEXTROSE 5%-WATER - 50 ML IVPB SCH (10:23)
[2022-11-05] MEDS: REMDESIVIR 100 MG in SODIUM CHLORIDE 250 ML IVPB SCH (11:48)
[2022-11-05 15:23] LABS: CALCIUM 8.2 mg/dL (8.5-10.1)
[2022-11-05 15:24] LABS: BLOOD UREA NITROGEN 50.5 mg/dL (7-18)
[2022-11-05 15:27] LABS: CREATININE 1.6 mg/dL (0.55-1.3)
[2022-11-05] MEDS: SODIUM ZIRCONIUM CYCLOSILICATE (LOKELMA) 5 GM PACKET PO SCH (15:53)
[2022-11-06 07:30] LABS: HEMATOCRIT 33.9 % (35.4-49); HEMOGLOBIN 10.4 GM/dL (11.7-16.9); LYMPH % 7.1 % (8-40); MCH 25.1 pg (25.7-33.7); MCHC 30.7 g/dl (32.0-35.9); MEAN CELL VOLUME 81.8 fl (80-96); MEAN PLT VOLUME 9.3 fl (7.5-11.1); MONO % 5.4 % (3.8-10.2); NEUT % 87.5 % (42.8-82.8); PLATELET COUNT 124 10^3/uL (134-434); RBC 4.14 M/mm3 (4.00-5.60); RDW 19.1 % (11.9-15.9); WHITE BLOOD COUNT 8.4 K/mm3 (4.0-10.0)
[2022-11-06 07:55] LABS: BLOOD UREA NITROGEN 40.7 mg/dL (7-18)
[2022-11-06 07:57] LABS: CREATININE 1.1 mg/dL (0.55-1.3)
[2022-11-06 07:59] LABS: CALCIUM 8.5 mg/dL (8.5-10.1)
[2022-11-06] MEDS: SODIUM ZIRCONIUM CYCLOSILICATE (LOKELMA) 5 GM PACKET PO SCH (09:40)
[2022-11-06] MEDS: DEXTROSE 5%-0.45% SALINE 1,000 ML IV SCH ×2 (09:40→21:25)
[2022-11-06] MEDS: DEXAMETHASONE SOD PHOSPHATE 10 MG/1 ML VIAL IVPB SCH (09:42)
[2022-11-06] MEDS: CEFTRIAXONE 1 GM in DEXTROSE 5%-WATER - 50 ML IVPB SCH (09:42)
[2022-11-06] MEDS ORDERED: SODIUM ZIRCONIUM CYCLOSILICATE (LOKELMA) 5 GM PACKET PO ONE (10:01)
[2022-11-06] MEDS: REMDESIVIR 100 MG in SODIUM CHLORIDE 250 ML IVPB SCH (10:43)
[2022-11-06] MEDS ORDERED: ACETAMINOPHEN 325 MG TABLET (FP) PO PRN (15:15)
[2022-11-06] MEDS: INSULIN SLIDING SCALE (NOVOLOG) 1 VIAL SQ SCH ×2 (17:22→21:33)
[2022-11-06] MEDS: HEPARIN NA (PORCINE) 5,000 UNITS/ML 1ML VIAL SQ SCH (21:32)
[2022-11-06] MEDS: INSULIN (LEVEMIR) 100 UNITS/ML UNITS SQ SCH (21:34)
[2022-11-06] MEDS: METOPROLOL TARTRATE 25 MG TABLET (FP) PO SCH (21:34)
[2022-11-07] MEDS: INSULIN SLIDING SCALE (NOVOLOG) 1 VIAL SQ SCH ×4 (06:20→22:53)
[2022-11-07] MEDS: sitaGLIPtin PHOSPHATE 50 MG TABLET PO SCH (06:20)
[2022-11-07 09:12] LABS: ALBUMIN 2.6 g/dl (3.4-5.0); BLOOD UREA NITROGEN 28.6 mg/dL (7-18); CALCIUM 8.4 mg/dL (8.5-10.1); MAGNESIUM 2.1 mg/dL (1.8-2.4)
[2022-11-07 09:15] LABS: BILIRUBIN,TOTAL 0.4 mg/dL (0.2-1); TOT PROT 6.7 g/dl (6.4-8.2)
[2022-11-07] MEDS ORDERED: FOSINOPRIL SODIUM 20 MG PO SCH (10:00)
[2022-11-07] MEDS: HEPARIN NA (PORCINE) 5,000 UNITS/ML 1ML VIAL SQ SCH ×3 (10:58→23:07)
[2022-11-07] MEDS: DEXAMETHASONE SOD PHOSPHATE 10 MG/1 ML VIAL IVPB SCH (10:58)
[2022-11-07] MEDS: INSULIN (LEVEMIR) 100 UNITS/ML UNITS SQ SCH ×2 (10:58→22:53)
[2022-11-07] MEDS: amLODIPine BESYLATE 10 MG TABLET (FP) PO SCH (10:59)
[2022-11-07] MEDS: SODIUM ZIRCONIUM CYCLOSILICATE (LOKELMA) 5 GM PACKET PO SCH (10:59)
[2022-11-07] MEDS: REMDESIVIR 100 MG in SODIUM CHLORIDE 250 ML IVPB SCH (10:59)
[2022-11-07] MEDS: METOPROLOL TARTRATE 25 MG TABLET (FP) PO SCH ×2 (10:59→23:08)
[2022-11-07] MEDS: CEFTRIAXONE 1 GM in DEXTROSE 5%-WATER - 50 ML IVPB SCH (10:59)
[2022-11-07] MEDS: DEXTROSE 5%-0.45% SALINE 1,000 ML IV SCH ×2 (13:10→19:00)
[2022-11-07 23:47] LABS: ACTIVATED PTT 25.4 SECONDS (25.2-36.5); INR 1.27 (0.83-1.09); PROTHROMBIN TIME (PATIENT) 14.6 SEC (9.7-13.0)
[2022-11-07 23:50] LABS: CHLORIDE 107 mmol/L (98-107); SODIUM 140 mmol/L (136-145)
[2022-11-07 23:52] LABS: CALCIUM 8.5 mg/dL (8.5-10.1)
[2022-11-07 23:53] LABS: ALBUMIN 2.8 g/dl (3.4-5.0); ANION GAP 9 MMOL/L (8-16); BLOOD UREA NITROGEN 32.5 mg/dL (7-18); CO2 24 mmol/L (21-32)
[2022-11-07 23:56] LABS: SGOT/AST 41 U/L (15-37); SGPT/ALT 35 U/L (13-61)
[2022-11-07 23:57] LABS: BILIRUBIN,TOTAL 0.3 mg/dL (0.2-1); TOT PROT 6.8 g/dl (6.4-8.2)
[2022-11-07 23:59] LABS: ALK PHOS 83 U/L (45-117)
[2022-11-08 01:09] LABS: HEMATOCRIT 35.8 % (35.4-49); HEMOGLOBIN 11.2 GM/dL (11.7-16.9); LYMPH % 8.5 % (8-40); MCH 25.3 pg (25.7-33.7); MCHC 31.3 g/dl (32.0-35.9); MEAN CELL VOLUME 80.8 fl (80-96); MEAN PLT VOLUME 9.1 fl (7.5-11.1); MONO % 6.9 % (3.8-10.2); NEUT % 84.6 % (42.8-82.8); PLATELET COUNT 155 10^3/uL (134-434); RBC 4.43 M/mm3 (4.00-5.60); RDW 18.5 % (11.9-15.9); WHITE BLOOD COUNT 10.7 K/mm3 (4.0-10.0)
[2022-11-08 01:21] LABS: GLUCOSE,RANDOM 34 mg/dL (74-106)
[2022-11-08] MEDS ORDERED: DEXTROSE 50%-WATER 25 GM/50 ML DISP.SYRIN IVPUSH ONE (01:57)
[2022-11-08] MEDS ORDERED: ASPIRIN 325 MG TABLET PO ONE (05:05)
[2022-11-08] MEDS ORDERED: ATORVASTATIN CA 80 MG TABLET (FP) PO ONE (05:21)
[2022-11-08] MEDS: INSULIN SLIDING SCALE (NOVOLOG) 1 VIAL SQ SCH ×4 (06:07→21:57)
[2022-11-08] MEDS: sitaGLIPtin PHOSPHATE 50 MG TABLET PO SCH (06:07)
[2022-11-08] MEDS: CEFTRIAXONE 1 GM in DEXTROSE 5%-WATER - 50 ML IVPB SCH (09:58)
[2022-11-08] MEDS: SODIUM ZIRCONIUM CYCLOSILICATE (LOKELMA) 5 GM PACKET PO SCH (09:59)
[2022-11-08] MEDS: REMDESIVIR 100 MG in SODIUM CHLORIDE 250 ML IVPB SCH (09:59)
[2022-11-08] MEDS: HEPARIN NA (PORCINE) 5,000 UNITS/ML 1ML VIAL SQ SCH ×2 (09:59→21:53)
[2022-11-08] MEDS: DEXAMETHASONE SOD PHOSPHATE 10 MG/1 ML VIAL IVPB SCH (09:59)
[2022-11-08] MEDS: amLODIPine BESYLATE 10 MG TABLET (FP) PO SCH (10:00)
[2022-11-08] MEDS: METOPROLOL TARTRATE 25 MG TABLET (FP) PO SCH ×2 (10:00→21:53)
[2022-11-08] MEDS: INSULIN (LEVEMIR) 100 UNITS/ML UNITS SQ SCH ×2 (10:09→21:58)
[2022-11-08] MEDS ORDERED: INSULIN (LEVEMIR) 100 UNITS/ML UNITS SQ SCH (13:27)
[2022-11-08] MEDS ORDERED: ATORVASTATIN CA 80 MG TABLET (FP) PO SCH (22:00)
[2022-11-09] MEDS ORDERED: LORazepam 2 MG/ML SDV VIAL IM ONE (01:56)
[2022-11-09] MEDS: INSULIN (LEVEMIR) 100 UNITS/ML UNITS SQ SCH ×2 (06:16→21:36)
[2022-11-09] MEDS: INSULIN SLIDING SCALE (NOVOLOG) 1 VIAL SQ SCH ×4 (06:16→21:38)
[2022-11-09] MEDS: ASPIRIN 81 MG CHEWABLE TABLETS PO SCH (09:48)
[2022-11-09] MEDS: METOPROLOL TARTRATE 25 MG TABLET (FP) PO SCH ×2 (09:48→21:38)
[2022-11-09] MEDS: SODIUM ZIRCONIUM CYCLOSILICATE (LOKELMA) 5 GM PACKET PO SCH (09:48)
[2022-11-09] MEDS: DEXAMETHASONE SOD PHOSPHATE 10 MG/1 ML VIAL IVPB SCH (09:48)
[2022-11-09] MEDS: CEFTRIAXONE 1 GM in DEXTROSE 5%-WATER - 50 ML IVPB SCH (09:49)
[2022-11-09] MEDS: HEPARIN NA (PORCINE) 5,000 UNITS/ML 1ML VIAL SQ SCH ×2 (09:49→21:36)
[2022-11-09] MEDS: amLODIPine BESYLATE 10 MG TABLET (FP) PO SCH (09:49)
[2022-11-09] MEDS ORDERED: LORazepam 2 MG/ML SDV VIAL IVPUSH PRN (15:00)
[2022-11-09] MEDS: ATORVASTATIN CA 80 MG TABLET (FP) PO SCH (21:38)
[2022-11-10] MEDS: INSULIN SLIDING SCALE (NOVOLOG) 1 VIAL SQ SCH ×4 (06:27→22:05)
[2022-11-10] MEDS: INSULIN (LEVEMIR) 100 UNITS/ML UNITS SQ SCH ×2 (06:28→22:05)
[2022-11-10] MEDS: DEXAMETHASONE 4 MG TABLET (FP) PO SCH (09:41)
[2022-11-10] MEDS: ASPIRIN 81 MG CHEWABLE TABLETS PO SCH (09:41)
[2022-11-10] MEDS: HEPARIN NA (PORCINE) 5,000 UNITS/ML 1ML VIAL SQ SCH ×2 (09:41→22:05)
[2022-11-10] MEDS: METOPROLOL TARTRATE 25 MG TABLET (FP) PO SCH ×2 (09:41→22:05)
[2022-11-10] MEDS: amLODIPine BESYLATE 10 MG TABLET (FP) PO SCH (09:41)
[2022-11-10] MEDS: SODIUM ZIRCONIUM CYCLOSILICATE (LOKELMA) 5 GM PACKET PO SCH (09:41)
[2022-11-10] MEDS: CEFTRIAXONE 1 GM in DEXTROSE 5%-WATER - 50 ML IVPB SCH (09:42)
[2022-11-10] MEDS: ATORVASTATIN CA 80 MG TABLET (FP) PO SCH (22:05)
[2022-11-11] MEDS: INSULIN (LEVEMIR) 100 UNITS/ML UNITS SQ SCH (06:41)
[2022-11-11] MEDS: INSULIN SLIDING SCALE (NOVOLOG) 1 VIAL SQ SCH ×2 (06:42→10:52)
[2022-11-11] MEDS: DEXAMETHASONE 4 MG TABLET (FP) PO SCH (10:02)
[2022-11-11] MEDS: amLODIPine BESYLATE 10 MG TABLET (FP) PO SCH (10:03)
[2022-11-11] MEDS: ASPIRIN 81 MG CHEWABLE TABLETS PO SCH (10:03)
[2022-11-11] MEDS: CEFTRIAXONE 1 GM in DEXTROSE 5%-WATER - 50 ML IVPB SCH (10:03)
[2022-11-11] MEDS: SODIUM ZIRCONIUM CYCLOSILICATE (LOKELMA) 5 GM PACKET PO SCH (10:03)
[2022-11-11] MEDS: METOPROLOL TARTRATE 25 MG TABLET (FP) PO SCH ×2 (10:03→11:08)
[2022-11-11] MEDS: HEPARIN NA (PORCINE) 5,000 UNITS/ML 1ML VIAL SQ SCH (10:04)
[2022-11-11] MEDS ORDERED: METOPROLOL TARTRATE 25 MG TABLET (FP) PO SCH (10:51)
[2022-11-11 15:16] VITALS: BP 162/75; PULSE 63; RESP 20; TEMP 97.7
== END 2022-11-11 17:35 | DRG 871 ==
LOC: JER 09:12 → JERBED 10:44 → J4S 11-05 02:46
PROVIDERS: ADMIT Internal Medicine; ATTEND Internal Medicine
PROC: XW033E5 Introduction of Remdesivir Anti-infective into Peripheral Vein, Percutaneous Approach, New Technology Group 5 (ICD-10-PCS; principal; 2022-11-04)
PROC: 3E0333Z Introduction of Anti-inflammatory into Peripheral Vein, Percutaneous Approach (ICD-10-PCS; 2022-11-04)
DX: A41.89 Other specified sepsis (principal); I63.9 Cerebral infarction, unspecified; J96.01 Acute respiratory failure with hypoxia; J96.02 Acute respiratory failure with hypercapnia; U07.1 COVID-19; E87.29 Other acidosis; J44.1 Chronic obstructive pulmonary disease with (acute) exacerbation; N17.9 Acute kidney failure, unspecified; N39.0 Urinary tract infection, site not specified; I12.9 Hypertensive chronic kidney disease with stage 1 through stage 4 chronic kidney disease, or unspecified chronic kidney disease; E11.22 Type 2 diabetes mellitus with diabetic chronic kidney disease; N18.9 Chronic kidney disease, unspecified; K21.9 Gastro-esophageal reflux disease without esophagitis; E87.5 Hyperkalemia; R68.0 Hypothermia, not associated with low environmental temperature; E11.65 Type 2 diabetes mellitus with hyperglycemia; D69.59 Other secondary thrombocytopenia; D64.9 Anemia, unspecified; I44.0 Atrioventricular block, first degree; I45.10 Unspecified right bundle-branch block; J45.909 Unspecified asthma, uncomplicated; B96.20 Unspecified Escherichia coli [E. coli] as the cause of diseases classified elsewhere; R00.1 Bradycardia, unspecified
CPT/HCPCS: 0241U-QW; 36415; 36600; 70450-TC; 70544-TC; 70551-TC; 71045-TC-FY; 80048; 80053; 81003; 82272; 82550; 82553; 82803; 82962; 83605; 83735; 84443; 84484; 85025; 85610; 85730; 86140; 86850; 86900; 86901; 87040; 87086; 87186; 93005; 93010; 94660; 99291; C9399; C9803-CS; J1100; J1644; U0003; U0005

== ENCOUNTER 2023-03-10 10:37 | Inpatient (IN) | payer OTHER ==
[2023-03-10 11:36] LABS: VENOUS BASE EXCESS 0.5 mmol/L (-2-2); VENOUS O2 SATURATION 93.5 % (70-80); VENOUS PH 7.449 (7.310-7.410)
[2023-03-10 11:38] LABS: BASO % 0.6 % (0-2.0); EOS % 1.4 % (0-4.5); HEMATOCRIT 25.2 % (35.4-49); HEMOGLOBIN 8.2 GM/dL (11.7-16.9); MCH 24.5 pg (25.7-33.7); MCHC 32.4 g/dl (32.0-35.9); MEAN CELL VOLUME 75.8 fl (80-96); MEAN PLT VOLUME 9.7 fl (7.5-11.1); PLATELET COUNT 164 10^3/uL (134-434); RBC 3.33 M/mm3 (4.00-5.60); RDW 18.5 % (11.9-15.9); WHITE BLOOD COUNT 10.6 K/mm3 (4.0-10.0)
[2023-03-10 11:45] LABS: INR 1.27 (0.83-1.09); PROTHROMBIN TIME (PATIENT) 14.7 SEC (9.7-13.0)
[2023-03-10 11:48] LABS: ACTIVATED PTT 37.1 SECONDS (25.2-36.5)
[2023-03-10 12:06] LABS: CHLORIDE 108 mmol/L (98-107); SODIUM 137 mmol/L (136-145)
[2023-03-10] MEDS ORDERED: NALOXONE HCL 0.4 MG/ML VIAL IVPUSH ONE (12:06)
[2023-03-10 12:07] LABS: CO2 25 mmol/L (21-32)
[2023-03-10 12:08] LABS: ALBUMIN 1.6 g/dl (3.4-5.0)
[2023-03-10 12:10] LABS: GLUCOSE,RANDOM 135 mg/dL (74-106)
[2023-03-10 12:12] LABS: CHOLESTEROL 63 mg/dL (50-200); CREATININE 1.7 mg/dL (0.55-1.3); SGOT/AST 96 U/L (15-37); SGPT/ALT 32 U/L (13-61)
[2023-03-10 12:13] LABS: LDL CHOLESTEROL (ONLY SJRH) 21 mg/dL (5-100)
[2023-03-10 12:14] LABS: BILIRUBIN,TOTAL 0.7 mg/dL (0.2-1)
[2023-03-10 12:15] LABS: ALK PHOS 145 U/L (45-117); HDL CHOLESTEROL 30 mg/dL (40-60)
[2023-03-10] MEDS ORDERED: NALOXONE HCL 0.4 MG/ML VIAL ONE (12:26)
[2023-03-10 12:35] LABS: ANION GAP 4 MMOL/L (8-16); POTASSIUM 6.6 mmol/L (3.5-5.1)
[2023-03-10] MEDS ORDERED: ASPIRIN 300 MG SUPP.RECT RC ONE ×2 (12:36→13:00)
[2023-03-10] MEDS ORDERED: VANCOMYCIN 1 GM in D5W (PRE-DOCKED) 1,000 MG/250 ML (RESTRICTED TO ID ONLY IVPB ONE (12:53)
[2023-03-10] MEDS ORDERED: PIPERACILLIN/TAZOB 4.5 GM 4.5 GM in DEXTROSE 5%-WATER 100 ML IVPB ONE (12:53)
[2023-03-10] MEDS ORDERED: ACETAMINOPHEN 1000 MG/100 ML BAG IVPB ONE (13:25)
[2023-03-10] MEDS ORDERED: ACETAMINOPHEN INJECTION 100 ML IVPB ONE (13:25)
[2023-03-10] MEDS ORDERED: PIPERACILLIN/TAZOB 4.5 GM 4.5 GM/100 ML BAG IVPB ONE (13:25)
[2023-03-10 13:52] LABS: POTASSIUM 4.1 mmol/L (3.5-5.1)
[2023-03-10 13:53] LABS: CALCIUM 7.9 mg/dL (8.5-10.1)
[2023-03-10 13:54] LABS: BLOOD UREA NITROGEN 44.3 mg/dL (7-18)
[2023-03-10 13:57] LABS: CREATININE 1.5 mg/dL (0.55-1.3)
[2023-03-10 14:16] LABS: BASO % 0.5 % (0-2.0); EOS % 0.5 % (0-4.5); HEMATOCRIT 23.7 % (35.4-49); HEMOGLOBIN 7.4 GM/dL (11.7-16.9); LYMPH % 7.6 % (8-40); MCH 23.5 pg (25.7-33.7); MCHC 31.1 g/dl (32.0-35.9); MEAN CELL VOLUME 75.6 fl (80-96); MEAN PLT VOLUME 8.8 fl (7.5-11.1); MONO % 9.1 % (3.8-10.2); NEUT % 82.3 % (42.8-82.8); PLATELET COUNT 211 10^3/uL (134-434); RBC 3.13 M/mm3 (4.00-5.60); RDW 18.1 % (11.9-15.9); WHITE BLOOD COUNT 12.7 K/mm3 (4.0-10.0)
[2023-03-10] MEDS ORDERED: VANCOMYCIN/WATER FOR INJ (PEG) 1,000 MG/200 ML BAG IVPB ONE (14:30)
[2023-03-10] MEDS ORDERED: FLU VACC QS2022-23(6MOS UP)/PF 60 MCG/0.5 ML SYRINGE IM ONE (15:00)
[2023-03-10 17:02] LABS: ALBUMIN 1.7 g/dl (3.4-5.0)
[2023-03-10 17:05] LABS: BILIRUBIN,DIRECT 0.4 mg/dL (0.0-0.2)
[2023-03-10 17:07] LABS: BILIRUBIN,TOTAL 0.7 mg/dL (0.2-1)
[2023-03-10] MEDS ORDERED: PIPERACILLIN/TAZOB 3.375 GM 3.375 GM/50 ML BAG IVPB ONE (19:26)
[2023-03-10] MEDS ORDERED: PIPERACILLIN/TAZOB 3.375 GM 3.375 GM in DEXTROSE 5%-WATER - 50 ML IVPB SCH (19:30)
[2023-03-10] MEDS: DEXTROSE 5%-NORMAL SALINE 1,000 ML IV SCH (19:36)
[2023-03-11] MEDS: LACTULOSE 20 GM/30 ML UDC (FOR ORAL USE ONLY) PO SCH ×4 (00:17→22:11)
[2023-03-11] MEDS: METOPROLOL TARTRATE 25 MG TABLET (FP) PO SCH ×3 (00:18→22:11)
[2023-03-11] MEDS: PIPERACILLIN/TAZOB 3.375 GM 3.375 GM in DEXTROSE 5%-WATER - 50 ML IVPB SCH ×4 (00:18→17:32)
[2023-03-11] MEDS ORDERED: VANCOMYCIN/WATER 1250 MG 1,250 MG/250 ML BAG IVPB ONE (06:19)
[2023-03-11] MEDS: INSULIN (NOVOLOG) ASPART 100 UNITS/ML 10ML VIAL SQ SCH ×3 (06:21→17:31)
[2023-03-11 07:15] LABS: BASO % 0.3 % (0-2.0); EOS % 2.1 % (0-4.5); HEMATOCRIT 22.4 % (35.4-49); HEMOGLOBIN 7.2 GM/dL (11.7-16.9); LYMPH % 7.5 % (8-40); MCH 24.3 pg (25.7-33.7); MCHC 32.3 g/dl (32.0-35.9); MEAN CELL VOLUME 75.3 fl (80-96); MEAN PLT VOLUME 8.8 fl (7.5-11.1); MONO % 8.7 % (3.8-10.2); NEUT % 81.4 % (42.8-82.8); PLATELET COUNT 189 10^3/uL (134-434); RBC 2.98 M/mm3 (4.00-5.60); RDW 18.1 % (11.9-15.9); WHITE BLOOD COUNT 7.1 K/mm3 (4.0-10.0)
[2023-03-11 07:33] LABS: POTASSIUM 3.9 mmol/L (3.5-5.1)
[2023-03-11 07:46] LABS: ALBUMIN 1.4 g/dl (3.4-5.0); BLOOD UREA NITROGEN 38.7 mg/dL (7-18); CALCIUM 7.8 mg/dL (8.5-10.1)
[2023-03-11 07:49] LABS: CREATININE 1.5 mg/dL (0.55-1.3)
[2023-03-11 07:51] LABS: BILIRUBIN,TOTAL 0.8 mg/dL (0.2-1); TOT PROT 6.1 g/dl (6.4-8.2)
[2023-03-11] MEDS: PANTOPRAZOLE 40 MG TABLET PO SCH (09:54)
[2023-03-11] MEDS: amLODIPine BESYLATE 10 MG TABLET (FP) PO SCH (09:54)
[2023-03-11] MEDS: ASCORBIC ACID 500 MG TABLET (FP) PO SCH (09:54)
[2023-03-11] MEDS: ZINC SULFATE 220 MG CAPSULE (FP) PO SCH (09:54)
[2023-03-11] MEDS ORDERED: INSULIN (NOVOLOG) ASPART 100 UNITS/ML 10ML VIAL ONE ×2 (12:32→17:28)
[2023-03-11] MEDS ORDERED: IRON SUCROSE INJECTION 200 MG in SODIUM CHLORIDE 90 ML IVPB ONE (14:15)
[2023-03-11] MEDS: DEXTROSE 5%-NORMAL SALINE 1,000 ML IV SCH (22:11)
[2023-03-12] MEDS: PIPERACILLIN/TAZOB 3.375 GM 3.375 GM in DEXTROSE 5%-WATER - 50 ML IVPB SCH ×3 (01:26→17:57)
[2023-03-12] MEDS ORDERED: INSULIN (NOVOLOG) ASPART 100 UNITS/ML 10ML VIAL ONE ×3 (06:00→17:37)
[2023-03-12] MEDS: INSULIN (NOVOLOG) ASPART 100 UNITS/ML 10ML VIAL SQ SCH ×3 (06:35→17:57)
[2023-03-12] MEDS ORDERED: VANCOMYCIN/WATER FOR INJ (PEG) 1,000 MG/200 ML BAG IVPB SCH (07:00)
[2023-03-12 08:18] LABS: BASO % 0.4 % (0-2.0); EOS % 1.1 % (0-4.5); HEMATOCRIT 24.6 % (35.4-49); HEMOGLOBIN 8.1 GM/dL (11.7-16.9); LYMPH % 13.7 % (8-40); MCH 25.6 pg (25.7-33.7); MCHC 33.1 g/dl (32.0-35.9); MEAN CELL VOLUME 77.4 fl (80-96); MEAN PLT VOLUME 9.2 fl (7.5-11.1); NEUT % 72.8 % (42.8-82.8); PLATELET COUNT 183 10^3/uL (134-434); RBC 3.17 M/mm3 (4.00-5.60); RDW 17.3 % (11.9-15.9); WHITE BLOOD COUNT 8.8 K/mm3 (4.0-10.0)
[2023-03-12 08:28] LABS: POTASSIUM 3.5 mmol/L (3.5-5.1)
[2023-03-12 08:30] LABS: CALCIUM 7.1 mg/dL (8.5-10.1)
[2023-03-12 08:31] LABS: ALBUMIN 1.4 g/dl (3.4-5.0)
[2023-03-12 08:33] LABS: CREATININE 1.9 mg/dL (0.55-1.3)
[2023-03-12 08:35] LABS: BILIRUBIN,TOTAL 0.9 mg/dL (0.2-1); TOT PROT 6.2 g/dl (6.4-8.2)
[2023-03-12] MEDS ORDERED: IRON SUCROSE INJECTION 200 MG in SODIUM CHLORIDE 90 ML IVPB ONE (10:00)
[2023-03-12] MEDS: ASCORBIC ACID 500 MG TABLET (FP) PO SCH (10:28)
[2023-03-12] MEDS: LACTULOSE 20 GM/30 ML UDC (FOR ORAL USE ONLY) PO SCH ×2 (10:28→22:17)
[2023-03-12] MEDS: METOPROLOL TARTRATE 25 MG TABLET (FP) PO SCH ×2 (10:29→22:17)
[2023-03-12] MEDS: PANTOPRAZOLE 40 MG TABLET PO SCH (10:29)
[2023-03-12] MEDS: amLODIPine BESYLATE 10 MG TABLET (FP) PO SCH (10:29)
[2023-03-12] MEDS: ZINC SULFATE 220 MG CAPSULE (FP) PO SCH (10:30)
[2023-03-12] MEDS: COLLAGENASE CLOSTRIDIUM HIST. 30 GRAMS TUBE TP SCH (22:18)
[2023-03-13] MEDS: PIPERACILLIN/TAZOB 3.375 GM 3.375 GM in DEXTROSE 5%-WATER - 50 ML IVPB SCH ×3 (03:11→18:31)
[2023-03-13] MEDS: ACETAMINOPHEN 325 MG TABLET (FP) PO PRN (05:00)
[2023-03-13] MEDS: INSULIN (NOVOLOG) ASPART 100 UNITS/ML 10ML VIAL SQ SCH ×3 (06:22→16:49)
[2023-03-13 07:35] LABS: POTASSIUM 3.4 mmol/L (3.5-5.1)
[2023-03-13 07:38] LABS: CALCIUM 7.2 mg/dL (8.5-10.1)
[2023-03-13 07:39] LABS: BLOOD UREA NITROGEN 27.6 mg/dL (7-18)
[2023-03-13 07:42] LABS: CREATININE 1.8 mg/dL (0.55-1.3)
[2023-03-13] MEDS: METOPROLOL TARTRATE 25 MG TABLET (FP) PO SCH ×2 (09:23→21:28)
[2023-03-13] MEDS: amLODIPine BESYLATE 10 MG TABLET (FP) PO SCH (09:23)
[2023-03-13] MEDS: ZINC SULFATE 220 MG CAPSULE (FP) PO SCH (09:23)
[2023-03-13] MEDS: LACTULOSE 20 GM/30 ML UDC (FOR ORAL USE ONLY) PO SCH ×2 (09:25→21:29)
[2023-03-13] MEDS: ASCORBIC ACID 500 MG TABLET (FP) PO SCH (09:25)
[2023-03-13] MEDS: PANTOPRAZOLE 40 MG TABLET PO SCH (09:25)
[2023-03-13] MEDS ORDERED: IRON SUCROSE INJECTION 200 MG in SODIUM CHLORIDE 90 ML IVPB ONE (10:00)
[2023-03-13] MEDS: COLLAGENASE CLOSTRIDIUM HIST. 30 GRAMS TUBE TP SCH (10:30)
[2023-03-13] MEDS ORDERED: POTASSIUM CHLORIDE ORAL LIQUID 20 MEQ/15 ML PO ONE (11:42)
[2023-03-13] MEDS ORDERED: INSULIN (NOVOLOG) ASPART 100 UNITS/ML 10ML VIAL ONE ×2 (11:59→16:42)
[2023-03-14] MEDS: PIPERACILLIN/TAZOB 3.375 GM 3.375 GM in DEXTROSE 5%-WATER - 50 ML IVPB SCH (03:33)
[2023-03-14] MEDS: INSULIN (NOVOLOG) ASPART 100 UNITS/ML 10ML VIAL SQ SCH ×3 (06:48→16:22)
[2023-03-14 07:31] LABS: BASO % 0.4 % (0-2.0); EOS % 3.4 % (0-4.5); HEMATOCRIT 22.9 % (35.4-49); HEMOGLOBIN 7.7 GM/dL (11.7-16.9); LYMPH % 14.5 % (8-40); MCH 25.7 pg (25.7-33.7); MCHC 33.4 g/dl (32.0-35.9); MEAN CELL VOLUME 76.9 fl (80-96); MEAN PLT VOLUME 9.3 fl (7.5-11.1); MONO % 9.7 % (3.8-10.2); PLATELET COUNT 169 10^3/uL (134-434); RBC 2.98 M/mm3 (4.00-5.60); RDW 18.2 % (11.9-15.9); WHITE BLOOD COUNT 8.9 K/mm3 (4.0-10.0)
[2023-03-14 07:38] LABS: POTASSIUM 3.8 mmol/L (3.5-5.1)
[2023-03-14 07:41] LABS: CALCIUM 7.3 mg/dL (8.5-10.1)
[2023-03-14 07:42] LABS: ALBUMIN 1.4 g/dl (3.4-5.0)
[2023-03-14 07:44] LABS: BLOOD UREA NITROGEN 23.6 mg/dL (7-18)
[2023-03-14 07:45] LABS: CREATININE 1.7 mg/dL (0.55-1.3)
[2023-03-14 07:46] LABS: TOT PROT 6.1 g/dl (6.4-8.2)
[2023-03-14 07:47] LABS: BILIRUBIN,TOTAL 0.8 mg/dL (0.2-1)
[2023-03-14] MEDS: SODIUM CHLORIDE IVPB SCH (10:16)
[2023-03-14] MEDS: DAPTOMYCIN IVPB SCH (10:16)
[2023-03-14] MEDS: METOPROLOL TARTRATE 25 MG TABLET (FP) PO SCH ×2 (10:17→21:41)
[2023-03-14] MEDS: ASCORBIC ACID 500 MG TABLET (FP) PO SCH (10:18)
[2023-03-14] MEDS: amLODIPine BESYLATE 10 MG TABLET (FP) PO SCH (10:18)
[2023-03-14] MEDS: ZINC SULFATE 220 MG CAPSULE (FP) PO SCH (10:18)
[2023-03-14] MEDS: PANTOPRAZOLE 40 MG TABLET PO SCH (10:19)
[2023-03-14] MEDS: LACTULOSE 20 GM/30 ML UDC (FOR ORAL USE ONLY) PO SCH ×2 (10:19→21:41)
[2023-03-14] MEDS: COLLAGENASE CLOSTRIDIUM HIST. 30 GRAMS TUBE TP SCH (10:20)
[2023-03-14] MEDS ORDERED: INSULIN (NOVOLOG) ASPART 100 UNITS/ML 10ML VIAL ONE ×2 (11:44→16:21)
[2023-03-14] MEDS: INSULIN (LEVEMIR) 100 UNITS/ML UNITS SQ SCH (21:42)
[2023-03-14] MEDS: ACETAMINOPHEN 325 MG TABLET (FP) PO PRN (21:43)
[2023-03-15] MEDS ORDERED: DEXTROSE 50%-WATER 25 GM/50 ML DISP.SYRIN IVPUSH ONE (06:01)
[2023-03-15] MEDS ORDERED: DEXTROSE 50%-WATER 25 GM/50 ML DISP.SYRIN ONE (06:04)
[2023-03-15] MEDS: INSULIN (NOVOLOG) ASPART 100 UNITS/ML 10ML VIAL SQ SCH ×3 (06:12→16:24)
[2023-03-15] MEDS: ASCORBIC ACID 500 MG TABLET (FP) PO SCH (09:02)
[2023-03-15] MEDS: LACTULOSE 20 GM/30 ML UDC (FOR ORAL USE ONLY) PO SCH ×2 (09:02→22:58)
[2023-03-15] MEDS: ZINC SULFATE 220 MG CAPSULE (FP) PO SCH (09:02)
[2023-03-15] MEDS: PANTOPRAZOLE 40 MG TABLET PO SCH (09:02)
[2023-03-15] MEDS: METOPROLOL TARTRATE 25 MG TABLET (FP) PO SCH ×2 (09:02→22:58)
[2023-03-15] MEDS: amLODIPine BESYLATE 10 MG TABLET (FP) PO SCH (09:02)
[2023-03-15] MEDS: SODIUM CHLORIDE IVPB SCH (10:32)
[2023-03-15] MEDS: DAPTOMYCIN IVPB SCH (10:32)
[2023-03-15] MEDS: COLLAGENASE CLOSTRIDIUM HIST. 30 GRAMS TUBE TP SCH (11:52)
[2023-03-15] MEDS: INSULIN (LEVEMIR) 100 UNITS/ML UNITS SQ SCH (22:58)
[2023-03-16] MEDS ORDERED: DEXTROSE 50%-WATER - 25 GM/50 ML VIAL IVPUSH ONE (06:17)
[2023-03-16] MEDS ORDERED: DEXTROSE 50%-WATER 25 GM/50 ML DISP.SYRIN ONE (06:17)
[2023-03-16] MEDS ORDERED: DEXTROSE 50%-WATER - 25 GM/50 ML VIAL IVPUSH PRN (06:19)
[2023-03-16] MEDS ORDERED: DEXTROSE 50%-WATER 25 GM/50 ML DISP.SYRIN IVPUSH PRN (06:22)
[2023-03-16] MEDS ORDERED: DEXTROSE 5%-0.45% SALINE 1,000 ML IV SCH (06:30)
[2023-03-16] MEDS: INSULIN SLIDING SCALE (NOVOLOG) 1 VIAL SQ SCH ×3 (07:14→16:24)
[2023-03-16 08:16] LABS: BASO % 0.7 % (0-2.0); EOS % 2.6 % (0-4.5); HEMATOCRIT 23.2 % (35.4-49); HEMOGLOBIN 7.5 GM/dL (11.7-16.9); MCH 25.2 pg (25.7-33.7); MCHC 32.4 g/dl (32.0-35.9); MEAN CELL VOLUME 77.7 fl (80-96); MEAN PLT VOLUME 9.1 fl (7.5-11.1); MONO % 8.3 % (3.8-10.2); NEUT % 75.4 % (42.8-82.8); PLATELET COUNT 147 10^3/uL (134-434); RBC 2.98 M/mm3 (4.00-5.60); RDW 18.5 % (11.9-15.9); WHITE BLOOD COUNT 7.7 K/mm3 (4.0-10.0)
[2023-03-16 08:26] LABS: POTASSIUM 3.5 mmol/L (3.5-5.1)
[2023-03-16 08:31] LABS: CALCIUM 7.2 mg/dL (8.5-10.1)
[2023-03-16 08:32] LABS: ALBUMIN 1.4 g/dl (3.4-5.0); BLOOD UREA NITROGEN 17.7 mg/dL (7-18)
[2023-03-16 08:35] LABS: CREATININE 1.4 mg/dL (0.55-1.3)
[2023-03-16 08:38] LABS: BILIRUBIN,TOTAL 0.4 mg/dL (0.2-1)
[2023-03-16] MEDS ORDERED: amLODIPine BESYLATE 10 MG TABLET (FP) PO SCH (10:00)
[2023-03-16] MEDS ORDERED: LACTULOSE 20 GM/30 ML UDC (FOR ORAL USE ONLY) PO SCH (10:00)
[2023-03-16] MEDS: ASCORBIC ACID 500 MG TABLET (FP) PO SCH (10:11)
[2023-03-16] MEDS: ZINC SULFATE 220 MG CAPSULE (FP) PO SCH (10:11)
[2023-03-16] MEDS: PANTOPRAZOLE 40 MG TABLET PO SCH (10:11)
[2023-03-16] MEDS: METOPROLOL TARTRATE 25 MG TABLET (FP) PO SCH ×2 (10:12→22:07)
[2023-03-16] MEDS: DAPTOMYCIN IVPB SCH (10:25)
[2023-03-16] MEDS: SODIUM CHLORIDE IVPB SCH (10:25)
[2023-03-16 12:36] VITALS: BMI 20.8
[2023-03-16] MEDS: COLLAGENASE CLOSTRIDIUM HIST. 30 GRAMS TUBE TP SCH (12:48)
[2023-03-16] MEDS: AMINO ACIDS/PROTEIN HYDROLYS 30 ML LIQUID.PKT PO SCH (17:02)
[2023-03-17] MEDS: INSULIN SLIDING SCALE (NOVOLOG) 1 VIAL SQ SCH ×3 (06:47→16:27)
[2023-03-17] MEDS: AMINO ACIDS/PROTEIN HYDROLYS 30 ML LIQUID.PKT PO SCH ×2 (09:22→18:15)
[2023-03-17] MEDS: PANTOPRAZOLE 40 MG TABLET PO SCH (09:22)
[2023-03-17] MEDS: METOPROLOL TARTRATE 25 MG TABLET (FP) PO SCH ×2 (09:22→22:44)
[2023-03-17] MEDS: ZINC SULFATE 220 MG CAPSULE (FP) PO SCH (09:25)
[2023-03-17] MEDS: LACTULOSE 20 GM/30 ML UDC (FOR ORAL USE ONLY) PO SCH (09:25)
[2023-03-17] MEDS: ASCORBIC ACID 500 MG TABLET (FP) PO SCH (09:26)
[2023-03-17] MEDS: COLLAGENASE CLOSTRIDIUM HIST. 30 GRAMS TUBE TP SCH (09:26)
[2023-03-17] MEDS: ACETAMINOPHEN 325 MG TABLET (FP) PO PRN ×2 (09:30→22:42)
[2023-03-17] MEDS: DAPTOMYCIN IVPB SCH (11:15)
[2023-03-17] MEDS: SODIUM CHLORIDE IVPB SCH (11:15)
[2023-03-17] MEDS ORDERED: INSULIN (NOVOLOG) ASPART 100 UNITS/ML 10ML VIAL ONE (12:50)
[2023-03-18] MEDS: INSULIN SLIDING SCALE (NOVOLOG) 1 VIAL SQ SCH ×3 (07:07→16:29)
[2023-03-18 07:47] LABS: BASO % 0.5 % (0-2.0); EOS % 2.3 % (0-4.5); HEMATOCRIT 23.5 % (35.4-49); HEMOGLOBIN 7.5 GM/dL (11.7-16.9); LYMPH % 17.7 % (8-40); MCH 24.6 pg (25.7-33.7); MCHC 31.7 g/dl (32.0-35.9); MEAN CELL VOLUME 77.6 fl (80-96); MEAN PLT VOLUME 9.8 fl (7.5-11.1); MONO % 7.8 % (3.8-10.2); NEUT % 71.7 % (42.8-82.8); PLATELET COUNT 161 10^3/uL (134-434); RBC 3.03 M/mm3 (4.00-5.60); RDW 19.1 % (11.9-15.9); WHITE BLOOD COUNT 7.9 K/mm3 (4.0-10.0)
[2023-03-18 08:02] LABS: POTASSIUM 4.1 mmol/L (3.5-5.1)
[2023-03-18 08:09] LABS: ALBUMIN 1.4 g/dl (3.4-5.0); CALCIUM 7.3 mg/dL (8.5-10.1); CREATININE 1.1 mg/dL (0.55-1.3)
[2023-03-18 08:11] LABS: BILIRUBIN,TOTAL 0.3 mg/dL (0.2-1); TOT PROT 5.9 g/dl (6.4-8.2)
[2023-03-18] MEDS: INSULIN (LEVEMIR) 100 UNITS/ML UNITS SQ SCH ×2 (10:14→21:59)
[2023-03-18] MEDS: DAPTOMYCIN IVPB SCH (10:15)
[2023-03-18] MEDS: SODIUM CHLORIDE IVPB SCH (10:15)
[2023-03-18] MEDS: METOPROLOL TARTRATE 25 MG TABLET (FP) PO SCH ×2 (10:17→22:00)
[2023-03-18] MEDS: AMINO ACIDS/PROTEIN HYDROLYS 30 ML LIQUID.PKT PO SCH ×2 (10:17→17:34)
[2023-03-18] MEDS: PANTOPRAZOLE 40 MG TABLET PO SCH (10:17)
[2023-03-18] MEDS: ZINC SULFATE 220 MG CAPSULE (FP) PO SCH (10:17)
[2023-03-18] MEDS: ACETAMINOPHEN 325 MG TABLET (FP) PO PRN ×2 (10:19→17:34)
[2023-03-18] MEDS: ASCORBIC ACID 500 MG TABLET (FP) PO SCH (10:20)
[2023-03-18] MEDS: COLLAGENASE CLOSTRIDIUM HIST. 30 GRAMS TUBE TP SCH (10:21)
[2023-03-18] MEDS: LACTULOSE 20 GM/30 ML UDC (FOR ORAL USE ONLY) PO SCH (10:21)
[2023-03-18 10:39] VITALS: RESP 18
[2023-03-18] MEDS ORDERED: INSULIN (LEVEMIR) 100 UNITS/ML UNITS SQ ONE (10:46)
[2023-03-18] MEDS ORDERED: INSULIN (NOVOLOG) ASPART 100 UNITS/ML 10ML VIAL ONE ×3 (11:45→20:55)
[2023-03-19] MEDS ORDERED: INSULIN (NOVOLOG) ASPART 100 UNITS/ML 10ML VIAL ONE ×3 (06:03→16:40)
[2023-03-19] MEDS: INSULIN SLIDING SCALE (NOVOLOG) 1 VIAL SQ SCH ×3 (06:30→16:22)
[2023-03-19] MEDS: ACETAMINOPHEN 325 MG TABLET (FP) PO PRN (06:34)
[2023-03-19 08:49] LABS: BASO % 0.5 % (0-2.0); HEMATOCRIT 23.9 % (35.4-49); HEMOGLOBIN 7.6 GM/dL (11.7-16.9); LYMPH % 16.7 % (8-40); MCH 24.5 pg (25.7-33.7); MCHC 31.7 g/dl (32.0-35.9); MEAN CELL VOLUME 77.5 fl (80-96); MEAN PLT VOLUME 9.3 fl (7.5-11.1); MONO % 8.2 % (3.8-10.2); NEUT % 72.6 % (42.8-82.8); PLATELET COUNT 184 10^3/uL (134-434); RBC 3.08 M/mm3 (4.00-5.60); RDW 19.8 % (11.9-15.9); WHITE BLOOD COUNT 7.7 K/mm3 (4.0-10.0)
[2023-03-19] MEDS: AMINO ACIDS/PROTEIN HYDROLYS 30 ML LIQUID.PKT PO SCH ×2 (09:05→16:37)
[2023-03-19] MEDS: PANTOPRAZOLE 40 MG TABLET PO SCH (09:05)
[2023-03-19] MEDS: LACTULOSE 20 GM/30 ML UDC (FOR ORAL USE ONLY) PO SCH (09:05)
[2023-03-19 09:06] LABS: POTASSIUM 4.3 mmol/L (3.5-5.1)
[2023-03-19] MEDS: ZINC SULFATE 220 MG CAPSULE (FP) PO SCH (09:06)
[2023-03-19] MEDS: ASCORBIC ACID 500 MG TABLET (FP) PO SCH (09:06)
[2023-03-19] MEDS: METOPROLOL TARTRATE 25 MG TABLET (FP) PO SCH ×2 (09:06→22:08)
[2023-03-19] MEDS: INSULIN (LEVEMIR) 100 UNITS/ML UNITS SQ SCH ×2 (09:10→22:07)
[2023-03-19 09:13] LABS: CALCIUM 7.1 mg/dL (8.5-10.1)
[2023-03-19 09:14] LABS: ALBUMIN 1.4 g/dl (3.4-5.0); BLOOD UREA NITROGEN 19.4 mg/dL (7-18)
[2023-03-19 09:17] LABS: CREATININE 0.9 mg/dL (0.55-1.3)
[2023-03-19 09:18] LABS: BILIRUBIN,TOTAL 0.4 mg/dL (0.2-1); TOT PROT 5.9 g/dl (6.4-8.2)
[2023-03-19] MEDS: COLLAGENASE CLOSTRIDIUM HIST. 30 GRAMS TUBE TP SCH (09:54)
[2023-03-19] MEDS: DAPTOMYCIN IVPB SCH (12:19)
[2023-03-19] MEDS: SODIUM CHLORIDE IVPB SCH (12:19)
[2023-03-19] MEDS ORDERED: ACETAMINOPHEN WITH CODEINE 300MG/30MG TABLET PO PRN (13:14)
[2023-03-19] MEDS ORDERED: INSULIN (LEVEMIR) 100 UNITS/ML UNITS SQ ONE (16:38)
[2023-03-20] MEDS ORDERED: INSULIN (NOVOLOG) ASPART 100 UNITS/ML 10ML VIAL ONE ×3 (05:17→12:15)
[2023-03-20] MEDS: INSULIN SLIDING SCALE (NOVOLOG) 1 VIAL SQ SCH ×2 (07:07→11:44)
[2023-03-20] MEDS ORDERED: INSULIN (LEVEMIR) 100 UNITS/ML UNITS SQ ONE ×2 (07:58→09:46)
[2023-03-20 08:35] VITALS: BP 137/66; PULSE 88; TEMP 98.2
[2023-03-20] MEDS: AMINO ACIDS/PROTEIN HYDROLYS 30 ML LIQUID.PKT PO SCH (08:36)
[2023-03-20] MEDS: PANTOPRAZOLE 40 MG TABLET PO SCH (09:26)
[2023-03-20] MEDS: LACTULOSE 20 GM/30 ML UDC (FOR ORAL USE ONLY) PO SCH (09:26)
[2023-03-20] MEDS: ZINC SULFATE 220 MG CAPSULE (FP) PO SCH (09:26)
[2023-03-20] MEDS: ASCORBIC ACID 500 MG TABLET (FP) PO SCH (09:26)
[2023-03-20] MEDS: METOPROLOL TARTRATE 25 MG TABLET (FP) PO SCH (09:27)
[2023-03-20] MEDS: COLLAGENASE CLOSTRIDIUM HIST. 30 GRAMS TUBE TP SCH (09:28)
[2023-03-20] MEDS: INSULIN (LEVEMIR) 100 UNITS/ML UNITS SQ SCH (09:42)
[2023-03-20] MEDS: ACETAMINOPHEN 325 MG TABLET (FP) PO PRN (11:21)
== END 2023-03-20 13:09 | DRG 602 ==
LOC: JER 10:37 → JERBED 13:37 → J4W 20:26 → J7W 03-15 10:25
PROVIDERS: ADMIT Internal Medicine; ATTEND Internal Medicine
DX: L03.116 Cellulitis of left lower limb (principal); G93.41 Metabolic encephalopathy; L89.524 Pressure ulcer of left ankle, stage 4; R53.2 Functional quadriplegia; N17.9 Acute kidney failure, unspecified; L97.828 Non-pressure chronic ulcer of other part of left lower leg with other specified severity; R64 Cachexia; E87.0 Hyperosmolality and hypernatremia; L89.150 Pressure ulcer of sacral region, unstageable; L89.622 Pressure ulcer of left heel, stage 2; B95.7 Other staphylococcus as the cause of diseases classified elsewhere; J44.9 Chronic obstructive pulmonary disease, unspecified; E11.649 Type 2 diabetes mellitus with hypoglycemia without coma; K21.9 Gastro-esophageal reflux disease without esophagitis; I10 Essential (primary) hypertension; F03.90 Unspecified dementia, unspecified severity, without behavioral disturbance, psychotic disturbance, mood disturbance, and anxiety; E87.5 Hyperkalemia; D64.9 Anemia, unspecified; R29.6 Repeated falls; R55 Syncope and collapse; K25.7 Chronic gastric ulcer without hemorrhage or perforation; K59.00 Constipation, unspecified; K22.70 Barrett's esophagus without dysplasia; Z68.22 Body mass index [BMI] 22.0-22.9, adult
CPT/HCPCS: 0241U-QW; 36415; 36430; 70450-TC; 70496-TC; 70498-TC; 70551-TC; 71045-TC-FY; 73630-TC-LT; 74230-TC-FY; 76705-TC; 80048; 80053; 80061; 80076; 82105; 82140; 82272; 82550; 82553; 82803; 82962; 83036; 83540; 83550; 83605; 84146; 84484; 85025; 85610; 85651; 85730; 86140; 86704; 86708; 86850; 86900; 86901; 86922; 87040; 87186; 87340; 87517; 87522; 92611-GN; 93005; 93010; 99291; C9803-CS; G0008; G0480; J0878; J1756; P9058; Q2036; U0003; U0005

== ENCOUNTER 2023-04-08 23:02 | Inpatient (IN) | payer OTHER ==
[2023-04-08 23:50] LABS: BASO % 0.2 % (0-2.0); EOS % 0.8 % (0-4.5); HEMATOCRIT 20.6 % (35.4-49); MCH 23.4 pg (25.7-33.7); MCHC 31.7 g/dl (32.0-35.9); MEAN CELL VOLUME 73.9 fl (80-96); MEAN PLT VOLUME 8.1 fl (7.5-11.1); MONO % 7.8 % (3.8-10.2); NEUT % 84.2 % (42.8-82.8); PLATELET COUNT 181 10^3/uL (134-434); RBC 2.79 M/mm3 (4.00-5.60); RDW 20.1 % (11.9-15.9); WHITE BLOOD COUNT 12.1 K/mm3 (4.0-10.0)
[2023-04-08 23:53] LABS: INR 1.23 (0.83-1.09); PROTHROMBIN TIME (PATIENT) 14.2 SEC (9.7-13.0)
[2023-04-08 23:55] LABS: HEMOGLOBIN 6.5 GM/dL (11.7-16.9)
[2023-04-08 23:56] LABS: ACTIVATED PTT 38.5 SECONDS (25.2-36.5)
[2023-04-09 00:15] LABS: POTASSIUM 4.7 mmol/L (3.5-5.1)
[2023-04-09 00:16] LABS: CALCIUM 7.4 mg/dL (8.5-10.1)
[2023-04-09 00:17] LABS: BLOOD UREA NITROGEN 40.4 mg/dL (7-18)
[2023-04-09 00:20] LABS: CREATININE 1.4 mg/dL (0.55-1.3)
[2023-04-09 00:22] LABS: BILIRUBIN,TOTAL 0.4 mg/dL (0.2-1); TOT PROT 5.8 g/dl (6.4-8.2)
[2023-04-09] MEDS ORDERED: CEFTRIAXONE 1,000 MG in DEXTROSE 5%-WATER - 50 ML IVPB ONE (01:58)
[2023-04-09] MEDS: INSULIN SLIDING SCALE (NOVOLOG) 1 VIAL SQ SCH ×4 (06:14→23:14)
[2023-04-09] MEDS ORDERED: DEXTROSE 50%-WATER 25 GM/50 ML DISP.SYRIN IVPUSH PRN (06:42)
[2023-04-09 07:39] LABS: BASO % 0.2 % (0-2.0); EOS % 0.9 % (0-4.5); HEMOGLOBIN 7.9 GM/dL (11.7-16.9); LYMPH % 6.1 % (8-40); MCH 24.9 pg (25.7-33.7); MCHC 33.2 g/dl (32.0-35.9); MEAN CELL VOLUME 75.1 fl (80-96); MEAN PLT VOLUME 8.9 fl (7.5-11.1); NEUT % 84.8 % (42.8-82.8); PLATELET COUNT 193 10^3/uL (134-434); RBC 3.19 M/mm3 (4.00-5.60); RDW 19.8 % (11.9-15.9)
[2023-04-09 08:18] LABS: POTASSIUM 4.6 mmol/L (3.5-5.1)
[2023-04-09 08:21] LABS: BLOOD UREA NITROGEN 38.8 mg/dL (7-18); CALCIUM 7.3 mg/dL (8.5-10.1)
[2023-04-09 08:24] LABS: CREATININE 1.2 mg/dL (0.55-1.3)
[2023-04-09] MEDS: TAMSULOSIN HCL 0.4 MG CAP PO SCH (09:55)
[2023-04-09] MEDS: FOLIC ACID 1 MG TABLET (FP) PO SCH (09:56)
[2023-04-09] MEDS: METOPROLOL TARTRATE 25 MG TABLET (FP) PO SCH ×2 (09:56→22:40)
[2023-04-09] MEDS: FERROUS SO4 325 MG TABLET (FP) PO SCH ×2 (09:56→22:40)
[2023-04-09] MEDS: amLODIPine BESYLATE 10 MG TABLET (FP) PO SCH (09:56)
[2023-04-09] MEDS: ASCORBIC ACID 500 MG TABLET (FP) PO SCH (09:56)
[2023-04-09] MEDS ORDERED: CLOPIDOGREL BISULFATE 75 MG TABLET (FP) PO SCH (10:00)
[2023-04-09] MEDS ORDERED: PIPERACILLIN/TAZOB 4.5 GM 4.5 GM in DEXTROSE 5%-WATER 100 ML IVPB SCH (10:00)
[2023-04-09] MEDS: BUDESONIDE/FORMETEROL FUMARATE 160/4.5 mcg INHALER IH SCH ×2 (11:18→22:40)
[2023-04-09 13:14] VITALS: BMI 23.0
[2023-04-09] MEDS ORDERED: INSULIN (NOVOLOG) ASPART 100 UNITS/ML 10ML VIAL ONE (16:32)
[2023-04-09] MEDS: AMINO ACIDS/PROTEIN HYDROLYS 30 ML LIQUID.PKT PO SCH (16:35)
[2023-04-09] MEDS: PIPERACILLIN/TAZOB 4.5 GM 4.5 GM in DEXTROSE 5%-WATER 100 ML IVPB SCH (17:55)
[2023-04-09] MEDS: ATORVASTATIN CA 80 MG TABLET (FP) PO SCH (22:40)
[2023-04-10] MEDS: PIPERACILLIN/TAZOB 4.5 GM 4.5 GM in DEXTROSE 5%-WATER 100 ML IVPB SCH ×2 (02:35→10:10)
[2023-04-10] MEDS: INSULIN SLIDING SCALE (NOVOLOG) 1 VIAL SQ SCH ×4 (06:58→21:53)
[2023-04-10 10:03] LABS: BASO % 0.3 % (0-2.0); EOS % 0.8 % (0-4.5); HEMATOCRIT 26.4 % (35.4-49); HEMOGLOBIN 8.9 GM/dL (11.7-16.9); LYMPH % 5.2 % (8-40); MCH 25.8 pg (25.7-33.7); MCHC 33.8 g/dl (32.0-35.9); MEAN CELL VOLUME 76.2 fl (80-96); MEAN PLT VOLUME 9.1 fl (7.5-11.1); MONO % 6.1 % (3.8-10.2); NEUT % 87.6 % (42.8-82.8); PLATELET COUNT 191 10^3/uL (134-434); RBC 3.46 M/mm3 (4.00-5.60); RDW 19.5 % (11.9-15.9); WHITE BLOOD COUNT 13.8 K/mm3 (4.0-10.0)
[2023-04-10] MEDS: FERROUS SO4 325 MG TABLET (FP) PO SCH ×2 (10:11→21:49)
[2023-04-10] MEDS: AMINO ACIDS/PROTEIN HYDROLYS 30 ML LIQUID.PKT PO SCH ×2 (10:11→17:07)
[2023-04-10] MEDS: TAMSULOSIN HCL 0.4 MG CAP PO SCH (10:11)
[2023-04-10] MEDS: FOLIC ACID 1 MG TABLET (FP) PO SCH (10:12)
[2023-04-10] MEDS: ZINC SULFATE 220 MG CAPSULE (FP) PO SCH (10:12)
[2023-04-10] MEDS: METOPROLOL TARTRATE 25 MG TABLET (FP) PO SCH ×2 (10:12→21:49)
[2023-04-10] MEDS: MULTIVITAMINS (DAILY MVI) TABLET (FP) PO SCH (10:13)
[2023-04-10] MEDS: amLODIPine BESYLATE 10 MG TABLET (FP) PO SCH (10:13)
[2023-04-10] MEDS: ASCORBIC ACID 500 MG TABLET (FP) PO SCH (10:13)
[2023-04-10] MEDS: ACETAMINOPHEN 325 MG TABLET (FP) PO PRN (10:14)
[2023-04-10] MEDS: BUDESONIDE/FORMETEROL FUMARATE 160/4.5 mcg INHALER IH SCH ×2 (10:16→22:55)
[2023-04-10] MEDS: FUROSEMIDE 40 MG/4 ML INJECTABLE VIAL IVPUSH SCH (11:22)
[2023-04-10] MEDS: PIPERACILLIN/TAZOB 3.375 GM 3.375 GM in DEXTROSE 5%-WATER - 50 ML IVPB SCH (19:01)
[2023-04-10] MEDS: ATORVASTATIN CA 80 MG TABLET (FP) PO SCH (21:49)
[2023-04-11] MEDS: PIPERACILLIN/TAZOB 3.375 GM 3.375 GM in DEXTROSE 5%-WATER - 50 ML IVPB SCH ×3 (01:26→17:16)
[2023-04-11] MEDS: INSULIN SLIDING SCALE (NOVOLOG) 1 VIAL SQ SCH ×4 (06:28→22:17)
[2023-04-11] MEDS: TAMSULOSIN HCL 0.4 MG CAP PO SCH (10:30)
[2023-04-11] MEDS: AMINO ACIDS/PROTEIN HYDROLYS 30 ML LIQUID.PKT PO SCH ×2 (10:30→16:58)
[2023-04-11] MEDS: FERROUS SO4 325 MG TABLET (FP) PO SCH ×2 (10:30→22:10)
[2023-04-11] MEDS: MULTIVITAMINS (DAILY MVI) TABLET (FP) PO SCH (10:31)
[2023-04-11] MEDS: ZINC SULFATE 220 MG CAPSULE (FP) PO SCH (10:31)
[2023-04-11] MEDS: METOPROLOL TARTRATE 25 MG TABLET (FP) PO SCH ×2 (10:31→22:10)
[2023-04-11] MEDS: FOLIC ACID 1 MG TABLET (FP) PO SCH (10:32)
[2023-04-11] MEDS: amLODIPine BESYLATE 10 MG TABLET (FP) PO SCH (10:32)
[2023-04-11] MEDS: ASCORBIC ACID 500 MG TABLET (FP) PO SCH (10:32)
[2023-04-11] MEDS: BUDESONIDE/FORMETEROL FUMARATE 160/4.5 mcg INHALER IH SCH ×2 (10:32→22:11)
[2023-04-11] MEDS: FUROSEMIDE 40 MG/4 ML INJECTABLE VIAL IVPUSH SCH (10:33)
[2023-04-11] MEDS: SODIUM HYPOCHLORITE 0.25%- 473 ML BULK BOTTLE TP SCH (14:14)
[2023-04-11] MEDS: COLLAGENASE CLOSTRIDIUM HIST. 30 GRAMS TUBE TP SCH (14:14)
[2023-04-11] MEDS ORDERED: INSULIN (NOVOLOG) ASPART 100 UNITS/ML 10ML VIAL ONE (21:25)
[2023-04-11] MEDS: ATORVASTATIN CA 80 MG TABLET (FP) PO SCH (22:10)
[2023-04-12] MEDS: PIPERACILLIN/TAZOB 3.375 GM 3.375 GM in DEXTROSE 5%-WATER - 50 ML IVPB SCH ×3 (03:03→17:17)
[2023-04-12] MEDS: INSULIN SLIDING SCALE (NOVOLOG) 1 VIAL SQ SCH ×4 (06:39→22:35)
[2023-04-12] MEDS: AMINO ACIDS/PROTEIN HYDROLYS 30 ML LIQUID.PKT PO SCH ×2 (10:10→17:01)
[2023-04-12] MEDS: amLODIPine BESYLATE 10 MG TABLET (FP) PO SCH (10:10)
[2023-04-12] MEDS: FUROSEMIDE 40 MG/4 ML INJECTABLE VIAL IVPUSH SCH (10:10)
[2023-04-12] MEDS: MULTIVITAMINS (DAILY MVI) TABLET (FP) PO SCH (10:10)
[2023-04-12] MEDS: TAMSULOSIN HCL 0.4 MG CAP PO SCH (10:10)
[2023-04-12] MEDS: FOLIC ACID 1 MG TABLET (FP) PO SCH (10:10)
[2023-04-12] MEDS: ZINC SULFATE 220 MG CAPSULE (FP) PO SCH (10:10)
[2023-04-12] MEDS: FERROUS SO4 325 MG TABLET (FP) PO SCH ×2 (10:11→22:34)
[2023-04-12] MEDS: BUDESONIDE/FORMETEROL FUMARATE 160/4.5 mcg INHALER IH SCH ×2 (10:11→22:35)
[2023-04-12] MEDS: METOPROLOL TARTRATE 25 MG TABLET (FP) PO SCH ×2 (10:11→22:34)
[2023-04-12] MEDS: ASCORBIC ACID 500 MG TABLET (FP) PO SCH (10:11)
[2023-04-12] MEDS ORDERED: INSULIN (NOVOLOG) ASPART 100 UNITS/ML 10ML VIAL ONE ×2 (11:12→15:58)
[2023-04-12] MEDS: SODIUM HYPOCHLORITE 0.25%- 473 ML BULK BOTTLE TP SCH (13:05)
[2023-04-12] MEDS: COLLAGENASE CLOSTRIDIUM HIST. 30 GRAMS TUBE TP SCH (15:08)
[2023-04-12] MEDS: ATORVASTATIN CA 80 MG TABLET (FP) PO SCH (22:34)
[2023-04-13] MEDS: PIPERACILLIN/TAZOB 3.375 GM 3.375 GM in DEXTROSE 5%-WATER - 50 ML IVPB SCH ×3 (03:16→18:32)
[2023-04-13] MEDS: ACETAMINOPHEN 325 MG TABLET (FP) PO PRN ×2 (07:00→22:27)
[2023-04-13] MEDS: INSULIN SLIDING SCALE (NOVOLOG) 1 VIAL SQ SCH ×4 (07:05→22:28)
[2023-04-13] MEDS: AMINO ACIDS/PROTEIN HYDROLYS 30 ML LIQUID.PKT PO SCH ×2 (08:27→17:34)
[2023-04-13] MEDS: TAMSULOSIN HCL 0.4 MG CAP PO SCH (08:27)
[2023-04-13] MEDS: FUROSEMIDE 40 MG/4 ML INJECTABLE VIAL IVPUSH SCH (10:34)
[2023-04-13] MEDS: amLODIPine BESYLATE 10 MG TABLET (FP) PO SCH (10:34)
[2023-04-13] MEDS: FOLIC ACID 1 MG TABLET (FP) PO SCH (10:34)
[2023-04-13] MEDS: ASCORBIC ACID 500 MG TABLET (FP) PO SCH (10:34)
[2023-04-13] MEDS: ZINC SULFATE 220 MG CAPSULE (FP) PO SCH (10:34)
[2023-04-13] MEDS: METOPROLOL TARTRATE 25 MG TABLET (FP) PO SCH ×2 (10:34→22:27)
[2023-04-13] MEDS: MULTIVITAMINS (DAILY MVI) TABLET (FP) PO SCH (10:34)
[2023-04-13] MEDS: FERROUS SO4 325 MG TABLET (FP) PO SCH ×2 (10:34→22:27)
[2023-04-13] MEDS: SODIUM HYPOCHLORITE 0.25%- 473 ML BULK BOTTLE TP SCH (10:35)
[2023-04-13] MEDS: BUDESONIDE/FORMETEROL FUMARATE 160/4.5 mcg INHALER IH SCH ×2 (10:35→22:29)
[2023-04-13] MEDS: COLLAGENASE CLOSTRIDIUM HIST. 30 GRAMS TUBE TP SCH (10:35)
[2023-04-13] MEDS ORDERED: INSULIN (NOVOLOG) ASPART 100 UNITS/ML 10ML VIAL ONE ×2 (12:04→12:24)
[2023-04-13] MEDS: ATORVASTATIN CA 80 MG TABLET (FP) PO SCH (22:27)
[2023-04-13] MEDS: INSULIN (LEVEMIR) 100 UNITS/ML UNITS SQ SCH (22:28)
[2023-04-14] MEDS: PIPERACILLIN/TAZOB 3.375 GM 3.375 GM in DEXTROSE 5%-WATER - 50 ML IVPB SCH ×3 (01:45→17:36)
[2023-04-14] MEDS: INSULIN SLIDING SCALE (NOVOLOG) 1 VIAL SQ SCH ×4 (06:33→22:44)
[2023-04-14] MEDS: TAMSULOSIN HCL 0.4 MG CAP PO SCH (08:42)
[2023-04-14] MEDS: AMINO ACIDS/PROTEIN HYDROLYS 30 ML LIQUID.PKT PO SCH ×2 (08:42→17:36)
[2023-04-14 09:19] LABS: BASO % 0.2 % (0-2.0); EOS % 2.9 % (0-4.5); HEMATOCRIT 27.6 % (35.4-49); HEMOGLOBIN 8.8 GM/dL (11.7-16.9); LYMPH % 8.6 % (8-40); MCH 24.8 pg (25.7-33.7); MEAN CELL VOLUME 77.4 fl (80-96); MEAN PLT VOLUME 8.4 fl (7.5-11.1); MONO % 9.1 % (3.8-10.2); NEUT % 79.2 % (42.8-82.8); PLATELET COUNT 189 10^3/uL (134-434); RBC 3.56 M/mm3 (4.00-5.60); RDW 20.9 % (11.9-15.9); WHITE BLOOD COUNT 9.9 K/mm3 (4.0-10.0)
[2023-04-14 09:55] LABS: POTASSIUM 3.2 mmol/L (3.5-5.1)
[2023-04-14 09:59] LABS: CALCIUM 7.3 mg/dL (8.5-10.1)
[2023-04-14 10:00] LABS: ALBUMIN 1.1 g/dl (3.4-5.0)
[2023-04-14 10:03] LABS: CREATININE 1.4 mg/dL (0.55-1.3)
[2023-04-14 10:04] LABS: BILIRUBIN,TOTAL 0.7 mg/dL (0.2-1); TOT PROT 6.1 g/dl (6.4-8.2)
[2023-04-14] MEDS: FERROUS SO4 325 MG TABLET (FP) PO SCH ×2 (10:17→22:45)
[2023-04-14] MEDS: METOPROLOL TARTRATE 25 MG TABLET (FP) PO SCH ×2 (10:18→22:45)
[2023-04-14] MEDS: FOLIC ACID 1 MG TABLET (FP) PO SCH (10:18)
[2023-04-14] MEDS: ZINC SULFATE 220 MG CAPSULE (FP) PO SCH (10:19)
[2023-04-14] MEDS: MULTIVITAMINS (DAILY MVI) TABLET (FP) PO SCH (10:19)
[2023-04-14] MEDS: amLODIPine BESYLATE 10 MG TABLET (FP) PO SCH (10:19)
[2023-04-14] MEDS: ASCORBIC ACID 500 MG TABLET (FP) PO SCH (10:20)
[2023-04-14] MEDS: FUROSEMIDE 40 MG/4 ML INJECTABLE VIAL IVPUSH SCH (10:21)
[2023-04-14] MEDS: BUDESONIDE/FORMETEROL FUMARATE 160/4.5 mcg INHALER IH SCH ×2 (10:21→22:46)
[2023-04-14 12:01] LABS: ANISOCYTOSIS 2+; MACROCYTOSIS 0; OVALOCYTE 2+
[2023-04-14] MEDS: COLLAGENASE CLOSTRIDIUM HIST. 30 GRAMS TUBE TP SCH (14:00)
[2023-04-14] MEDS: SODIUM HYPOCHLORITE 0.25%- 473 ML BULK BOTTLE TP SCH (14:00)
[2023-04-14] MEDS: ATORVASTATIN CA 80 MG TABLET (FP) PO SCH (22:45)
[2023-04-14] MEDS: ACETAMINOPHEN 325 MG TABLET (FP) PO PRN (22:45)
[2023-04-14] MEDS: INSULIN (LEVEMIR) 100 UNITS/ML UNITS SQ SCH (22:45)
[2023-04-15] MEDS: PIPERACILLIN/TAZOB 3.375 GM 3.375 GM in DEXTROSE 5%-WATER - 50 ML IVPB SCH ×3 (02:12→17:16)
[2023-04-15] MEDS: INSULIN SLIDING SCALE (NOVOLOG) 1 VIAL SQ SCH ×4 (06:15→23:06)
[2023-04-15] MEDS: TAMSULOSIN HCL 0.4 MG CAP PO SCH (09:23)
[2023-04-15] MEDS: AMINO ACIDS/PROTEIN HYDROLYS 30 ML LIQUID.PKT PO SCH ×2 (09:23→17:16)
[2023-04-15] MEDS: FOLIC ACID 1 MG TABLET (FP) PO SCH (09:48)
[2023-04-15] MEDS: ASCORBIC ACID 500 MG TABLET (FP) PO SCH (09:48)
[2023-04-15] MEDS: ZINC SULFATE 220 MG CAPSULE (FP) PO SCH (09:48)
[2023-04-15] MEDS: METOPROLOL TARTRATE 25 MG TABLET (FP) PO SCH ×2 (09:49→22:57)
[2023-04-15] MEDS: amLODIPine BESYLATE 10 MG TABLET (FP) PO SCH (09:49)
[2023-04-15] MEDS: FERROUS SO4 325 MG TABLET (FP) PO SCH ×2 (09:49→22:57)
[2023-04-15] MEDS: MULTIVITAMINS (DAILY MVI) TABLET (FP) PO SCH (09:50)
[2023-04-15] MEDS: BUDESONIDE/FORMETEROL FUMARATE 160/4.5 mcg INHALER IH SCH ×2 (09:51→22:59)
[2023-04-15] MEDS: COLLAGENASE CLOSTRIDIUM HIST. 30 GRAMS TUBE TP SCH (09:52)
[2023-04-15] MEDS: FUROSEMIDE 40 MG/4 ML INJECTABLE VIAL IVPUSH SCH (09:54)
[2023-04-15] MEDS: ACETAMINOPHEN 325 MG TABLET (FP) PO PRN ×3 (10:14→23:45)
[2023-04-15] MEDS: SODIUM HYPOCHLORITE 0.25%- 473 ML BULK BOTTLE TP SCH (15:33)
[2023-04-15] MEDS: ATORVASTATIN CA 80 MG TABLET (FP) PO SCH (22:57)
[2023-04-15] MEDS: INSULIN (LEVEMIR) 100 UNITS/ML UNITS SQ SCH (22:58)
[2023-04-16] MEDS: PIPERACILLIN/TAZOB 3.375 GM 3.375 GM in DEXTROSE 5%-WATER - 50 ML IVPB SCH ×3 (02:26→17:44)
[2023-04-16] MEDS: INSULIN SLIDING SCALE (NOVOLOG) 1 VIAL SQ SCH ×4 (06:12→21:28)
[2023-04-16] MEDS: FUROSEMIDE 40 MG/4 ML INJECTABLE VIAL IVPUSH SCH (09:25)
[2023-04-16] MEDS: FOLIC ACID 1 MG TABLET (FP) PO SCH (09:26)
[2023-04-16] MEDS: FERROUS SO4 325 MG TABLET (FP) PO SCH ×2 (09:26→21:08)
[2023-04-16] MEDS: TAMSULOSIN HCL 0.4 MG CAP PO SCH (09:26)
[2023-04-16] MEDS: METOPROLOL TARTRATE 25 MG TABLET (FP) PO SCH ×2 (09:26→21:08)
[2023-04-16] MEDS: amLODIPine BESYLATE 10 MG TABLET (FP) PO SCH (09:26)
[2023-04-16] MEDS: ZINC SULFATE 220 MG CAPSULE (FP) PO SCH (09:26)
[2023-04-16] MEDS: ASCORBIC ACID 500 MG TABLET (FP) PO SCH (09:26)
[2023-04-16] MEDS: MULTIVITAMINS (DAILY MVI) TABLET (FP) PO SCH (09:26)
[2023-04-16] MEDS: SODIUM HYPOCHLORITE 0.25%- 473 ML BULK BOTTLE TP SCH (11:34)
[2023-04-16] MEDS: COLLAGENASE CLOSTRIDIUM HIST. 30 GRAMS TUBE TP SCH (11:34)
[2023-04-16] MEDS: BUDESONIDE/FORMETEROL FUMARATE 160/4.5 mcg INHALER IH SCH ×2 (11:35→21:10)
[2023-04-16] MEDS: AMINO ACIDS/PROTEIN HYDROLYS 30 ML LIQUID.PKT PO SCH ×2 (11:39→17:43)
[2023-04-16] MEDS: ACETAMINOPHEN 325 MG TABLET (FP) PO PRN (13:02)
[2023-04-16] MEDS ORDERED: INSULIN (NOVOLOG) ASPART 100 UNITS/ML 10ML VIAL ONE (21:03)
[2023-04-16] MEDS: ATORVASTATIN CA 80 MG TABLET (FP) PO SCH (21:08)
[2023-04-16] MEDS: INSULIN (LEVEMIR) 100 UNITS/ML UNITS SQ SCH (21:27)
[2023-04-17] MEDS: PIPERACILLIN/TAZOB 3.375 GM 3.375 GM in DEXTROSE 5%-WATER - 50 ML IVPB SCH ×2 (02:25→10:31)
[2023-04-17] MEDS: ACETAMINOPHEN 325 MG TABLET (FP) PO PRN ×2 (04:10→21:48)
[2023-04-17] MEDS: INSULIN SLIDING SCALE (NOVOLOG) 1 VIAL SQ SCH ×4 (07:13→21:41)
[2023-04-17] MEDS ORDERED: INSULIN (NOVOLOG) ASPART 100 UNITS/ML 10ML VIAL ONE ×2 (08:24→21:34)
[2023-04-17] MEDS ORDERED: INSULIN (LEVEMIR) 100 UNITS/ML UNITS SQ ONE (08:25)
[2023-04-17] MEDS: TAMSULOSIN HCL 0.4 MG CAP PO SCH (10:29)
[2023-04-17] MEDS: ASCORBIC ACID 500 MG TABLET (FP) PO SCH (10:29)
[2023-04-17] MEDS: METOPROLOL TARTRATE 25 MG TABLET (FP) PO SCH ×2 (10:29→21:43)
[2023-04-17] MEDS: FERROUS SO4 325 MG TABLET (FP) PO SCH ×2 (10:29→21:43)
[2023-04-17] MEDS: amLODIPine BESYLATE 10 MG TABLET (FP) PO SCH (10:29)
[2023-04-17] MEDS: FOLIC ACID 1 MG TABLET (FP) PO SCH (10:29)
[2023-04-17] MEDS: AMINO ACIDS/PROTEIN HYDROLYS 30 ML LIQUID.PKT PO SCH ×2 (10:30→17:13)
[2023-04-17] MEDS: FUROSEMIDE 40 MG/4 ML INJECTABLE VIAL IVPUSH SCH (10:30)
[2023-04-17] MEDS: BUDESONIDE/FORMETEROL FUMARATE 160/4.5 mcg INHALER IH SCH ×2 (10:30→21:49)
[2023-04-17] MEDS: ZINC SULFATE 220 MG CAPSULE (FP) PO SCH (10:30)
[2023-04-17] MEDS: SODIUM HYPOCHLORITE 0.25%- 473 ML BULK BOTTLE TP SCH (10:30)
[2023-04-17] MEDS: COLLAGENASE CLOSTRIDIUM HIST. 30 GRAMS TUBE TP SCH (10:30)
[2023-04-17] MEDS: MULTIVITAMINS (DAILY MVI) TABLET (FP) PO SCH (10:31)
[2023-04-17] MEDS: INSULIN (LEVEMIR) 100 UNITS/ML UNITS SQ SCH (21:40)
[2023-04-17] MEDS: ATORVASTATIN CA 80 MG TABLET (FP) PO SCH (21:43)
[2023-04-18] MEDS: INSULIN SLIDING SCALE (NOVOLOG) 1 VIAL SQ SCH ×4 (07:07→23:21)
[2023-04-18] MEDS ORDERED: INSULIN (NOVOLOG) ASPART 100 UNITS/ML 10ML VIAL ONE (07:33)
[2023-04-18] MEDS ORDERED: INSULIN (LEVEMIR) 100 UNITS/ML UNITS SQ ONE (07:33)
[2023-04-18] MEDS: AMINO ACIDS/PROTEIN HYDROLYS 30 ML LIQUID.PKT PO SCH ×2 (08:21→17:32)
[2023-04-18] MEDS: TAMSULOSIN HCL 0.4 MG CAP PO SCH (08:21)
[2023-04-18] MEDS: ASCORBIC ACID 500 MG TABLET (FP) PO SCH (09:37)
[2023-04-18] MEDS: ZINC SULFATE 220 MG CAPSULE (FP) PO SCH (09:38)
[2023-04-18] MEDS: METOPROLOL TARTRATE 25 MG TABLET (FP) PO SCH ×2 (09:38→23:24)
[2023-04-18] MEDS: amLODIPine BESYLATE 10 MG TABLET (FP) PO SCH (09:38)
[2023-04-18] MEDS: FERROUS SO4 325 MG TABLET (FP) PO SCH ×2 (09:39→23:24)
[2023-04-18] MEDS: FOLIC ACID 1 MG TABLET (FP) PO SCH (09:39)
[2023-04-18] MEDS: MULTIVITAMINS (DAILY MVI) TABLET (FP) PO SCH (09:40)
[2023-04-18] MEDS: BUDESONIDE/FORMETEROL FUMARATE 160/4.5 mcg INHALER IH SCH ×2 (09:41→23:24)
[2023-04-18] MEDS: SODIUM HYPOCHLORITE 0.25%- 473 ML BULK BOTTLE TP SCH (10:14)
[2023-04-18] MEDS: FUROSEMIDE 40 MG/4 ML INJECTABLE VIAL IVPUSH SCH (10:16)
[2023-04-18] MEDS: COLLAGENASE CLOSTRIDIUM HIST. 30 GRAMS TUBE TP SCH (10:17)
[2023-04-18] MEDS: ACETAMINOPHEN 325 MG TABLET (FP) PO PRN ×2 (14:48→23:22)
[2023-04-18] MEDS: INSULIN (LEVEMIR) 100 UNITS/ML UNITS SQ SCH (23:21)
[2023-04-18] MEDS: ATORVASTATIN CA 80 MG TABLET (FP) PO SCH (23:24)
[2023-04-19] MEDS ORDERED: TRIMETHOBENZAMIDE HCL 200MG/2ML INJ IM PRN (00:14)
[2023-04-19] MEDS: INSULIN SLIDING SCALE (NOVOLOG) 1 VIAL SQ SCH ×4 (07:12→22:23)
[2023-04-19 08:43] LABS: BASO % 0.3 % (0-2.0); HEMATOCRIT 26.7 % (35.4-49); HEMOGLOBIN 8.5 GM/dL (11.7-16.9); LYMPH % 12.5 % (8-40); MCH 24.4 pg (25.7-33.7); MCHC 31.9 g/dl (32.0-35.9); MEAN CELL VOLUME 76.4 fl (80-96); MEAN PLT VOLUME 8.8 fl (7.5-11.1); MONO % 8.2 % (3.8-10.2); PLATELET COUNT 171 10^3/uL (134-434); RDW 21.7 % (11.9-15.9)
[2023-04-19 09:13] LABS: POTASSIUM 3.4 mmol/L (3.5-5.1)
[2023-04-19 09:15] LABS: CALCIUM 7.2 mg/dL (8.5-10.1)
[2023-04-19 09:16] LABS: BLOOD UREA NITROGEN 35.2 mg/dL (7-18)
[2023-04-19 09:40] LABS: ANISOCYTOSIS 2+; MACROCYTOSIS 1+
[2023-04-19] MEDS: BUDESONIDE/FORMETEROL FUMARATE 160/4.5 mcg INHALER IH SCH ×2 (10:28→21:48)
[2023-04-19] MEDS: COLLAGENASE CLOSTRIDIUM HIST. 30 GRAMS TUBE TP SCH (10:28)
[2023-04-19] MEDS: AMINO ACIDS/PROTEIN HYDROLYS 30 ML LIQUID.PKT PO SCH ×2 (10:29→16:44)
[2023-04-19] MEDS: TAMSULOSIN HCL 0.4 MG CAP PO SCH (10:29)
[2023-04-19] MEDS: SODIUM HYPOCHLORITE 0.25%- 473 ML BULK BOTTLE TP SCH (10:29)
[2023-04-19] MEDS: MULTIVITAMINS (DAILY MVI) TABLET (FP) PO SCH (10:30)
[2023-04-19] MEDS: ASCORBIC ACID 500 MG TABLET (FP) PO SCH (10:30)
[2023-04-19] MEDS: FOLIC ACID 1 MG TABLET (FP) PO SCH (10:30)
[2023-04-19] MEDS: METOPROLOL TARTRATE 25 MG TABLET (FP) PO SCH ×2 (10:30→21:47)
[2023-04-19] MEDS: amLODIPine BESYLATE 10 MG TABLET (FP) PO SCH (10:30)
[2023-04-19] MEDS: ZINC SULFATE 220 MG CAPSULE (FP) PO SCH (10:31)
[2023-04-19] MEDS: FUROSEMIDE 40 MG/4 ML INJECTABLE VIAL IVPUSH SCH (10:31)
[2023-04-19] MEDS: FERROUS SO4 325 MG TABLET (FP) PO SCH ×2 (10:31→21:47)
[2023-04-19] MEDS ORDERED: POTASSIUM CHLORIDE ORAL LIQUID 20 MEQ/15 ML PO ONE (11:03)
[2023-04-19] MEDS ORDERED: INSULIN (NOVOLOG) ASPART 100 UNITS/ML 10ML VIAL ONE ×2 (11:41→22:22)
[2023-04-19] MEDS: INSULIN (LEVEMIR) 100 UNITS/ML UNITS SQ SCH (21:47)
[2023-04-19] MEDS: ATORVASTATIN CA 80 MG TABLET (FP) PO SCH (21:47)
[2023-04-19] MEDS: ACETAMINOPHEN 325 MG TABLET (FP) PO PRN (21:51)
[2023-04-20] MEDS ORDERED: DEXTROSE 50%-WATER 25 GM/50 ML DISP.SYRIN ONE (05:52)
[2023-04-20] MEDS ORDERED: DEXTROSE 50%-WATER 25 GM/50 ML DISP.SYRIN IVPUSH ONE (06:02)
[2023-04-20] MEDS: INSULIN SLIDING SCALE (NOVOLOG) 1 VIAL SQ SCH ×3 (06:08→16:33)
[2023-04-20] MEDS: FUROSEMIDE 40 MG/4 ML INJECTABLE VIAL IVPUSH SCH (10:59)
[2023-04-20] MEDS: METOPROLOL TARTRATE 25 MG TABLET (FP) PO SCH (10:59)
[2023-04-20] MEDS: ZINC SULFATE 220 MG CAPSULE (FP) PO SCH (10:59)
[2023-04-20] MEDS: MULTIVITAMINS (DAILY MVI) TABLET (FP) PO SCH (10:59)
[2023-04-20] MEDS: AMINO ACIDS/PROTEIN HYDROLYS 30 ML LIQUID.PKT PO SCH ×2 (11:00→16:34)
[2023-04-20] MEDS: TAMSULOSIN HCL 0.4 MG CAP PO SCH (11:00)
[2023-04-20] MEDS: SODIUM HYPOCHLORITE 0.25%- 473 ML BULK BOTTLE TP SCH (11:00)
[2023-04-20] MEDS: amLODIPine BESYLATE 10 MG TABLET (FP) PO SCH (11:01)
[2023-04-20] MEDS: ASCORBIC ACID 500 MG TABLET (FP) PO SCH (11:01)
[2023-04-20] MEDS: FERROUS SO4 325 MG TABLET (FP) PO SCH (11:01)
[2023-04-20] MEDS: COLLAGENASE CLOSTRIDIUM HIST. 30 GRAMS TUBE TP SCH (11:02)
[2023-04-20] MEDS: FOLIC ACID 1 MG TABLET (FP) PO SCH (11:02)
[2023-04-20] MEDS: BUDESONIDE/FORMETEROL FUMARATE 160/4.5 mcg INHALER IH SCH (11:03)
[2023-04-20 17:10] VITALS: BP 129/60; PULSE 81; RESP 18; TEMP 98.9
== END 2023-04-20 19:05 | DRG 592 ==
LOC: JER 23:02 → JERBED 04-09 01:56 → J7W 04-09 04:24 → OBSVTOIN 04-11 10:49
PROVIDERS: ADMIT Internal Medicine; ATTEND Internal Medicine
PROC: 30233N1 Transfusion of Nonautologous Red Blood Cells into Peripheral Vein, Percutaneous Approach (ICD-10-PCS; principal; 2023-04-09)
DX: L89.154 Pressure ulcer of sacral region, stage 4 (principal); R53.2 Functional quadriplegia; N17.9 Acute kidney failure, unspecified; E46 Unspecified protein-calorie malnutrition; J96.10 Chronic respiratory failure, unspecified whether with hypoxia or hypercapnia; D64.9 Anemia, unspecified; L89.894 Pressure ulcer of other site, stage 4; F03.90 Unspecified dementia, unspecified severity, without behavioral disturbance, psychotic disturbance, mood disturbance, and anxiety; K21.9 Gastro-esophageal reflux disease without esophagitis; I10 Essential (primary) hypertension; E11.9 Type 2 diabetes mellitus without complications; J44.9 Chronic obstructive pulmonary disease, unspecified; D72.829 Elevated white blood cell count, unspecified; E88.09 Other disorders of plasma-protein metabolism, not elsewhere classified; N50.89 Other specified disorders of the male genital organs; R60.1 Generalized edema; Z86.718 Personal history of other venous thrombosis and embolism; Z68.23 Body mass index [BMI] 23.0-23.9, adult
CPT/HCPCS: 0241U-QW; 36415; 36430; 72193-TC; 80048; 80053; 82272; 82962; 83036; 85025; 85610; 85730; 86850; 86900; 86901; 86922; 87040; 87635; 93005; 93010; 99285-25; G0378; P9038; P9058; Q9967